=== PATIENT | male | born 1990 | race African-American/Black ===

== ENCOUNTER 2017-04-01 02:00 | Emergency (ER) | payer OTHER ==
[2017-04-01 02:33] VITALS: RESP 18
--- NOTE | 2017-04-01 02:52 | ED ---
General Adult HPI - General Chief complaint: Psychiatric Symptoms Stated complaint: mental health Source: patient, RN notes reviewed, old records reviewed Mode of arrival: ambulatory Limitations: no limitations - History of Present Illness Initial comments: This is a 19-year-old male he states he is having psychosis. States he is having issues with his psychiatric problems. He denies drugs or alcohol abuse. He is unable to answer questions, does not know esters in the hospital denies drugs or alcohol denies homicide or suicide - Related Data Home Medications Medication Instructions Recorded Confirmed traZODone HCL 50 mg PO HS 04/01/17 04/01/17 Previous Rx's Medication Instructions Recorded risperiDONE MICROSPHERES 25 mg IM ONCE #1 syringe 04/07/16 [RisperDAL CONSTA] risperiDONE [RisperDAL] 3 mg PO BID #60 tab 04/07/16 Allergies Allergy/AdvReac Type Severity Reaction Status Date / Time No Known Allergies Allergy Verified 04/01/16 01:31 Review of Systems ROS Statement: Those systems with pertinent positive or pertinent negative responses have been documented in the HPI. ROS Other: All systems not noted in ROS Statement are negative. Past Medical History Past Medical History: No Reported History Additional Past Medical History / Comment(s): pt states he has schizophrenia and he has no other medical issues History of Any Multi-Drug Resistant Organisms: None Reported Past Surgical History: No Surgical Hx Reported Additional Past Anesthesia/Blood Transfusion Reaction / Comment(s): has not had any anesthesia or tranfusions Past Psychological History: Schizophrenia Smoking Status: Current every day smoker Past Alcohol Use History: None Reported Past Drug Use History: Marijuana - Past Family History Father Additional Family Medical History / Comment(s): Father is alive in his 40s with no major medical problems. Mother Additional Family Medical History / Comment(s): Mother in 2007. Patient does not know her age at the time and could be related to alcohol problems. Brother(s) Additional Family Medical History / Comment(s): Patient has 5 brothers and one from problems with alcohol. The other 4 brothers have no major medical problems. Patient has one sister that is healthy. Patient has 3 daughters that are healthy. General Exam Limitations: no limitations General appearance: alert, in no apparent distress Head exam: Present: atraumatic, normocephalic, normal inspection Eye exam: Present: normal appearance, PERRL, EOMI. Absent: scleral icterus, conjunctival injection, periorbital swelling ENT exam: Present: normal exam, mucous membranes moist Neck exam: Present: normal inspection. Absent: tenderness, meningismus, lymphadenopathy Respiratory exam: Present: normal lung sounds bilaterally. Absent: respiratory distress, wheezes, rales, rhonchi, stridor Cardiovascular Exam: Present: regular rate, normal rhythm, normal heart sounds. Absent: systolic murmur, diastolic murmur, rubs, gallop, clicks GI/Abdominal exam: Present: soft, normal bowel sounds. Absent: distended, tenderness, guarding, rebound, rigid Extremities exam: Present: normal inspection, full ROM, normal capillary refill. Absent: tenderness, pedal edema, joint swelling, calf tenderness Back exam: Present: normal inspection Neurological exam: Present: alert, oriented X3, CN II-XII intact Psychiatric exam: Present: normal affect, normal mood Skin exam: Present: warm, dry, intact, normal color. Absent: rash Course Vital Signs 04/01/17 02:28 Temperature 98.2 F Pulse Rate 75 Respiratory 18 Rate Blood Pressure 159/79 O2 Sat by Pulse 95 Oximetry - Reevaluation(s) Reevaluation #1: 04/01/17 02:52 Patient's medically clear for psychiatric evaluation Medical Decision Making - Medical Decision Making 27 male to ED co psychosis, will follow up with [facility], not homicidal or suicidal - Lab Data Lab Results 04/01/17 Range/Units 02:51 Urine Opiates Screen Not Detected (NotDetected) Ur Oxycodone Screen Not Detected (NotDetected) Urine Methadone Screen Not Detected (NotDetected) Ur Propoxyphene Screen Not Detected (NotDetected) Ur Barbiturates Screen Not Detected (NotDetected) U Tricyclic Antidepress Not Detected (NotDetected) Ur Phencyclidine Scrn Not Detected (NotDetected) Ur Amphetamines Screen Not Detected (NotDetected) U Methamphetamines Scrn Not Detected (NotDetected) U Benzodiazepines Scrn Not Detected (NotDetected) Urine Cocaine Screen Not Detected (NotDetected) U Marijuana (THC) Screen Detected H (NotDetected) Disposition Clinical Impression: Psychosis Disposition: HOME SELF-CARE Condition: Good Instructions: Brief Psychotic Disorder (ED) Referrals: None,Stated [Primary Care Provider] - 1-2 days
[2017-04-01] MEDS ORDERED: IBUPROFEN 600 MG TAB PO STA (04:25)
[2017-04-01 04:46] VITALS: BP 138/83; PULSE 61; TEMP 97.8
== END 2017-04-01 04:40 | disposition home or self-care (01) ==
LOC: EC 02:00
DX: F29 Unspecified psychosis not due to a substance or known physiological condition (principal); F20.9 Schizophrenia, unspecified; F17.200 Nicotine dependence, unspecified, uncomplicated; Z79.899 Other long term (current) drug therapy
CPT/HCPCS: 80306; 82075; 99284

== ENCOUNTER 2017-04-03 15:56 | Emergency (ER) | payer OTHER ==
--- NOTE | 2017-04-03 16:01 | ED ---
General Adult HPI <Kelvin Martinez - Last Filed: 04/03/17 16:01> - General Source: patient, RN notes reviewed <Guru Neville - Last Filed: 04/03/17 19:48> - General Stated complaint: Mental Health Time Seen by Provider: 04/03/17 15:59 - History of Present Illness Initial comments: Physical 19-year-old male with history of schizophrenia who came in for evaluation. He's never come on with information. He states he would like to talk to someone from [facility] which is close to. When asked whether he is feeling depressed or having any suicidal or homicidal thoughts or ideations he refuses to answer. He does agree to be awake alert oriented he just smiles and laughs when asked questions. (Guru Neville) - Related Data Home Medications Medication Instructions Recorded Confirmed diphenhydrAMINE [Benadryl] 50 mg PO HS 04/03/17 04/03/17 risperiDONE MICROSPHERES 25 mg IM Q14D 04/03/17 04/03/17 [RisperDAL CONSTA] Allergies Allergy/AdvReac Type Severity Reaction Status Date / Time No Known Allergies Allergy Verified 04/03/17 16:08 Review of Systems ROS Other: All systems not noted in ROS Statement are negative. <Kelvin Martinez - Last Filed: 04/03/17 16:01> ROS Other: All systems not noted in ROS Statement are negative. <Guru Neville - Last Filed: 04/03/17 19:48> ROS Statement: Those systems with pertinent positive or pertinent negative responses have been documented in the HPI. Past Medical History Past Medical History: No Reported History Additional Past Medical History / Comment(s): pt states he has schizophrenia and he has no other medical issues History of Any Multi-Drug Resistant Organisms: None Reported Past Surgical History: No Surgical Hx Reported Additional Past Anesthesia/Blood Transfusion Reaction / Comment(s): has not had any anesthesia or tranfusions Past Psychological History: Schizophrenia Smoking Status: Current every day smoker Past Alcohol Use History: None Reported Past Drug Use History: Marijuana - Past Family History Father Additional Family Medical History / Comment(s): Father is alive in his 40s with no major medical problems. Mother Additional Family Medical History / Comment(s): Mother in 2007. Patient does not know her age at the time and could be related to alcohol problems. Brother(s) Additional Family Medical History / Comment(s): Patient has 5 brothers and one from problems with alcohol. The other 4 brothers have no major medical problems. Patient has one sister that is healthy. Patient has 3 daughters that are healthy. <Kelvin Martinez - Last Filed: 04/03/17 16:01> General Exam <FatouParesh northophbalta Kapadia - Last Filed: 04/03/17 16:01> General appearance: alert, in no apparent distress Head exam: Present: atraumatic, normocephalic, normal inspection Eye exam: Present: normal appearance, PERRL, EOMI. Absent: scleral icterus, conjunctival injection, periorbital swelling ENT exam: Present: normal exam, mucous membranes moist Neck exam: Present: normal inspection. Absent: tenderness, meningismus, lymphadenopathy Respiratory exam: Present: normal lung sounds bilaterally. Absent: respiratory distress, wheezes, rales, rhonchi, stridor Cardiovascular Exam: Present: regular rate, normal rhythm, normal heart sounds. Absent: systolic murmur, diastolic murmur, rubs, gallop, clicks GI/Abdominal exam: Present: soft, normal bowel sounds. Absent: distended, tenderness, guarding, rebound, rigid Extremities exam: Present: normal inspection, full ROM, normal capillary refill. Absent: tenderness, pedal edema, joint swelling, calf tenderness Back exam: Present: normal inspection Neurological exam: Present: alert, oriented X3, CN II-XII intact Psychiatric exam: Present: depressed, flat affect Skin exam: Present: warm, dry, intact, normal color. Absent: rash <Guru Neville - Last Filed: 04/03/17 19:48> - General Exam Comments Initial Comments: This is a well-developed well-nourished awake alert male (Guru Neville) Medical Decision Making <Kelvin Martinez - Last Filed: 04/03/17 16:01> <Guru Neville - Last Filed: 04/03/17 19:48> - Medical Decision Making The patient was evaluated by the psychiatric service. He will be discharged with follow-up with [facility] tomorrow. He currently is not a risk to himself or others. Suicidal thoughts or homicidal thoughts or ideations. (Guru Neville) - Lab Data Lab Results 04/03/17 Range/Units 16:30 Urine Opiates Screen Not Detected (NotDetected) Ur Oxycodone Screen Not Detected (NotDetected) Urine Methadone Screen Not Detected (NotDetected) Ur Propoxyphene Screen Not Detected (NotDetected) Ur Barbiturates Screen Not Detected (NotDetected) U Tricyclic Antidepress Not Detected (NotDetected) Ur Phencyclidine Scrn Not Detected (NotDetected) Ur Amphetamines Screen Not Detected (NotDetected) U Methamphetamines Scrn Not Detected (NotDetected) U Benzodiazepines Scrn Not Detected (NotDetected) Urine Cocaine Screen Not Detected (NotDetected) U Marijuana (THC) Screen Detected H (NotDetected) Disposition <Kelvin Martinez - Last Filed: 04/03/17 16:01> <Guru Neville - Last Filed: 04/03/17 19:48> Clinical Impression: Schizophrenia Disposition: HOME SELF-CARE Condition: Good Instructions: Schizophrenia (ED) Referrals: None,Stated [Primary Care Provider] - 1-2 days
[2017-04-03 16:08] VITALS: RESP 18; TEMP 98.1
[2017-04-03 20:15] VITALS: BP 129/71; PULSE 78
== END 2017-04-03 20:26 | disposition home or self-care (01) ==
LOC: EC 15:56
DX: F20.9 Schizophrenia, unspecified (principal); F17.200 Nicotine dependence, unspecified, uncomplicated; Z79.899 Other long term (current) drug therapy
CPT/HCPCS: 80306; 82075; 99284

== ENCOUNTER 2017-04-05 08:32 | Inpatient (IN) | payer MEDICAID, OTHER ==
--- NOTE | 2017-04-05 09:52 | ED ---
Skin/Abscess/FB HPI - General Chief complaint: Skin/Abscess/Foreign Body Stated complaint: Herpes Time Seen by Provider: 04/05/17 09:06 Source: patient, RN notes reviewed, old records reviewed Mode of arrival: ambulatory Limitations: no limitations - History of Present Illness Initial comments: 27-year-old male presents the ED chief complaint of acute herpes outbreak for the past day or more. Patient will not state exactly when this started. Patient seen in emergency department 2 times earlier this week for psychiatric complaints. Patient has a history of paranoid schizophrenia. He is discharged with these times. Nurse reports to myself that when she has these suicidal ideation question patient would not respond. Upon further questioning when I discussed this with the patient he continued to not respond. Patient will be seen for psychiatric evaluation. - Related Data Home Medications Medication Instructions Recorded Confirmed diphenhydrAMINE [Benadryl] 50 mg PO HS 04/03/17 04/05/17 risperiDONE MICROSPHERES 25 mg IM Q14D 04/03/17 04/05/17 [RisperDAL CONSTA] Previous Rx's Medication Instructions Recorded valACYclovir HCL [Valtrex] 1,000 mg PO Q12HR #20 tab 04/05/17 Allergies Allergy/AdvReac Type Severity Reaction Status Date / Time No Known Allergies Allergy Verified 04/03/17 16:08 Review of Systems ROS Statement: Those systems with pertinent positive or pertinent negative responses have been documented in the HPI. ROS Other: All systems not noted in ROS Statement are negative. Past Medical History Past Medical History: No Reported History Additional Past Medical History / Comment(s): pt states he has schizophrenia and he has no other medical issues History of Any Multi-Drug Resistant Organisms: None Reported Past Surgical History: No Surgical Hx Reported Additional Past Anesthesia/Blood Transfusion Reaction / Comment(s): has not had any anesthesia or tranfusions Past Psychological History: Schizophrenia Smoking Status: Current every day smoker Past Alcohol Use History: None Reported Past Drug Use History: Marijuana - Past Family History Father Additional Family Medical History / Comment(s): Father is alive in his 40s with no major medical problems. Mother Additional Family Medical History / Comment(s): Mother in 2007. Patient does not know her age at the time and could be related to alcohol problems. Brother(s) Additional Family Medical History / Comment(s): Patient has 5 brothers and one from problems with alcohol. The other 4 brothers have no major medical problems. Patient has one sister that is healthy. Patient has 3 daughters that are healthy. General Exam - General Exam Comments Initial Comments: 27-year-old male. No acute distress. Patient is very slow in his responses. Limitations: no limitations General appearance: alert, in no apparent distress Head exam: Present: atraumatic, normocephalic, normal inspection Eye exam: Present: normal appearance, PERRL, EOMI. Absent: scleral icterus, conjunctival injection, periorbital swelling ENT exam: Present: normal exam, mucous membranes moist Neck exam: Present: normal inspection. Absent: tenderness, meningismus, lymphadenopathy Respiratory exam: Present: normal lung sounds bilaterally. Absent: respiratory distress, wheezes, rales, rhonchi, stridor Cardiovascular Exam: Present: regular rate, normal rhythm, normal heart sounds. Absent: systolic murmur, diastolic murmur, rubs, gallop, clicks GI/Abdominal exam: Present: soft, normal bowel sounds. Absent: distended, tenderness, guarding, rebound, rigid Extremities exam: Present: normal inspection, full ROM, normal capillary refill. Absent: tenderness, pedal edema, joint swelling, calf tenderness Back exam: Present: normal inspection Neurological exam: Present: alert, oriented X3, CN II-XII intact Psychiatric exam: Present: normal affect, flat affect (Patient is very slow to respond. Patient will not state that he is suicidal homicidal. Patient refuses answer the question.). Absent: normal mood Skin exam: Present: warm, dry, intact, normal color, rash (Patient is evidence of herpes outbreak over genitalia.) Course Vital Signs 04/05/17 04/05/17 08:34 09:54 Temperature 99.1 F 99.0 F Pulse Rate 69 72 Respiratory 17 18 Rate Blood Pressure 158/82 142/82 O2 Sat by Pulse 98 98 Oximetry Medical Decision Making - Medical Decision Making 19-year-old male chief complaint of acute alveolar herpes simplex reasons emergency department for treatment. Upon questioning he was very slow to respond. Patient was nontender somewhat. He has been seen multiple times this past week and has been discharged. At this time he was clear for EPS evaluation. EPS at [facility] initially evaluated the patient. Upon initial review the thought that he should be discharged. On discussion with psychiatrist he felt he should be admitted. Patient will now be admitted at time for inpatient psychiatric services. - Lab Data Lab Results 04/05/17 Range/Units 10:00 Urine Color Yellow Urine Appearance Clear (Clear) Urine pH 6.5 (5.0-8.0) Ur Specific [place] 1.024 (1.001-1.035) Urine Protein 1+ H (Negative) Urine Glucose (UA) Negative (Negative) Urine Ketones 2+ H (Negative) Urine Blood Negative (Negative) Urine Nitrite Negative (Negative) Urine Bilirubin Negative (Negative) Urine Urobilinogen 6.0 (<2.0) mg/dL Ur Leukocyte Esterase Negative (Negative) Urine WBC 1 (0-5) /hpf Urine Mucus Rare H (None) /hpf Urine Sperm Rare (None) /hpf Urine Opiates Screen Not Detected (NotDetected) Ur Oxycodone Screen Not Detected (NotDetected) Urine Methadone Screen Not Detected (NotDetected) Ur Propoxyphene Screen Not Detected (NotDetected) Ur Barbiturates Screen Not Detected (NotDetected) U Tricyclic Antidepress Not Detected (NotDetected) Ur Phencyclidine Scrn Not Detected (NotDetected) Ur Amphetamines Screen Not Detected (NotDetected) U Methamphetamines Scrn Not Detected (NotDetected) U Benzodiazepines Scrn Not Detected (NotDetected) Urine Cocaine Screen Not Detected (NotDetected) U Marijuana (THC) Screen Detected H (NotDetected) Disposition Clinical Impression: Schizophrenia, Herpes genitalia Disposition: ADMITTED IP TO THIS HOSP Condition: Good Additional Instructions: follow up with [facility] at home. Patient should take prescription as instructed. Return to the emergency department if any alarming signs or symptoms occur. Prescriptions: valACYclovir HCL [Valtrex] 1,000 mg PO Q12HR #20 tab Referrals: None,Stated [Primary Care Provider] - 1-2 days Time of Disposition: 12:22
[2017-04-05 10:10] LABS: Appearance,Urine Clear (Clear); Bilirubin,Urine Negative (Negative); Glucose,Urine (UA) Negative (Negative); Ketones,Urine 2+ (Negative); Leukocyte Esterase,Urine Negative (Negative); Mucus,Urine Rare /hpf; Nitrite,Urine Negative (Negative); PH, Urine 6.5 (5.0-8.0); Particle Count 1838; Protein,Urine 1+ (Negative); Specific Gravity,Urine 1.024 (1.001-1.035); Sperm,Urine Rare /hpf; UA Billing (MACRO vs. MICRO) MICRO; WBC,Urine 1 /hpf (0-5)
[2017-04-05] MEDS ORDERED: MAGNESIUM HYDROXIDE 2,400 MG/10 ML CUP PO PRN (15:57)
[2017-04-05] MEDS ORDERED: ACETAMINOPHEN TAB 325 MG TAB PO PRN (15:57)
[2017-04-05] MEDS ORDERED: MAG HYDROX/AL HYDROX/SIMETH 30 ML CUP PO PRN (15:57)
[2017-04-05] MEDS ORDERED: risperiDONE 2 MG TAB PO SCH (21:00)
[2017-04-05] MEDS: diphenhydrAMINE 50 MG CAP PO SCH (21:05)
[2017-04-05] MEDS: valACYclovir HCL 1,000 MG TABLET PO SCH (21:05)
[2017-04-05 22:38] VITALS: BMI 26.0
[2017-04-06] MEDS: valACYclovir HCL 1,000 MG TABLET PO SCH ×2 (08:18→21:01)
[2017-04-06 08:29] LABS: Basophils % (A) 1 %; CH 33.6; CHCM 34.6; Eosinophils # (A) 0.1 k/uL (0-0.7); Eosinophils % (A) 2 %; HCT 44.9 % (39.0-53.0); HDW 2.33; HGB 15.3 gm/dL (13.0-17.5); Luc % (Auto) 2; Lymphocytes # (A) 1.5 k/uL (1.0-4.8); Lymphocytes % (A) 35 %; MCH 33.2 pg (25.0-35.0); MCV 97.5 fL (80.0-100.0); Monocytes # (A) 0.2 k/uL (0-1.0); Monocytes % (A) 5 %; Neutrophils # (A) 2.5 k/uL (1.3-7.7); Neutrophils % (A) 56 %; RBC 4.61 m/uL (4.30-5.90); RDW 12.2 % (11.5-15.5); WBC 4.4 k/uL (3.8-10.6); WBC (Perox) 4.43
[2017-04-06 08:51] LABS: ALT 25 U/L (21-72); AST 30 U/L (17-59); Alkaline Phosphatase 86 U/L (38-126); Anion Gap 10 mmol/L; Blood Urea Nitrogen 15 mg/dL (9-20); Calcium 9.4 mg/dL (8.4-10.2); Carbon Dioxide 25 mmol/L (22-30); Chloride 105 mmol/L (98-107); Glucose 116 mg/dL (74-99); Non-African American GFR(MDRD) >60 (>60 ml/min/1.73 sqM); Potassium 4.4 mmol/L (3.5-5.1); Sodium 140 mmol/L (137-145); Total Bilirubin 0.9 mg/dL (0.2-1.3); Total Protein 7.7 g/dL (6.3-8.2)
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
[2017-04-06] MEDS: PALIPERIDONE 6 MG TAB.ER.24 PO SCH (10:28)
[2017-04-06] MEDS: diphenhydrAMINE 50 MG CAP PO SCH (21:01)
--- NOTE | 2017-04-06 21:25 | P.CONS ---
History of Present Illness - Reason for Consult Consult date: 04/06/17 Medical evaluation - History of Present Illness 27-year-old gentleman -[place] who was seen in emergency room secondary to a rash in the genitalia and was found to have herpes genitalia, patient does not have a current PCP, his currently being treated at the facility with concerns that he might be suicidal. Patient has underlying history of schizophrenia, tobacco use and tobacco use, patient has initial evaluation done emergency room regarding his depression and any suicidality intent. Patient was not giving any answers to these and was silent to his answers, he was further evaluated by the emergency room secondary social studies teacher with recommendations to be admitted at the mental health unit. Patient had previously admitted last 10/2015 secondary to hallucinations, patient had no suicidal plans in the past however she E mentioned he smoked K2 as a suicide attempt there was no previous history of overdose or wrist cutting. Patient currently is homeless it doesn't seem like he was compliant on medications as he doesn't want anybody to find his medication and take them like candy, Review of Systems Constitutional: Reports as per HPI, Denies anorexia, Denies chills, Denies chronic headaches, Denies chronic pain, Denies daytime sleepiness, Denies fatigue, Denies fever, Denies lethargy, Denies malaise, Denies night sweats, Denies poor appetite, Denies sweats, Denies weakness, Denies weight gain, Denies weight loss Ears, nose, mouth and throat: Reports as per HPI, Denies ant. neck pain, Denies bleeding gums, Denies dental pain, Denies dysphagia, Denies epistaxis, Denies headache, Denies hoarseness, Denies mouth pain, Denies nasal congestion, Denies nasal discharge, Denies neck fullness/pressure, Denies neck lump, Denies nose pain, Denies odynophagia, Denies post-nasal drip, Denies sinus pain, Denies sinus pressure, Denies swelling in mouth, Denies swelling in throat, Denies sore throat, Denies vertigo, Denies voice changes Cardiovascular: Reports as per HPI, Denies chest pain, Denies claudication, Denies decreased exercise tolerance, Denies dyspnea on exertion, Denies edema, Denies high blood pressure, Denies irregular heart beat, Denies leg edema, Denies lightheadedness, Denies orthopnea, Denies palpitations, Denies paroxysmal nocturnal dyspnea, Denies phlebitis, Denies rapid heart beat, Denies shortness of breath, Denies syncope Respiratory: Reports as per HPI, Denies congestion, Denies cough, Denies cough with sputum, Denies dyspnea, Denies excessive sputum, Denies hemoptysis, Denies home oxygen, Denies pain, Denies pain on inspiration, Denies pleurisy, Denies respiratory infections, Denies sleep apnea, Denies snoring, Denies wheezing Gastrointestinal: Reports as per HPI, Denies abdominal pain, Denies belching, Denies bloating, Denies BRBPR, Denies change in bowel habits, Denies coffee ground emesis, Denies constipation, Denies diarrhea, Denies dyspepsia, Denies early satiety, Denies excessive gas, Denies heartburn, Denies hematemesis, Denies hematochezia, Denies indigestion, Denies jaundice, Denies lactose intolerance, Denies loss of appetite, Denies melena, Denies nausea, Denies vomiting Genitourinary: Reports as per HPI, Reports genital sores Musculoskeletal: Reports as per HPI Integumentary: Reports as per HPI Neurological: Reports as per HPI Psychiatric: Reports as per HPI Endocrine: Reports as per HPI Hematologic/Lymphatic: Reports as per HPI Allergic/Immunologic: Reports as per HPI Past Medical History Past Medical History: No Reported History Additional Past Medical History / Comment(s): pt states he has schizophrenia and he has no other medical issues History of Any Multi-Drug Resistant Organisms: None Reported Past Surgical History: No Surgical Hx Reported Additional Past Anesthesia/Blood Transfusion Reaction / Comm: has not had any anesthesia or tranfusions Past Psychological History: Schizophrenia Smoking Status: Current every day smoker - Past Family History Father Additional Family Medical History / Comment(s): Father is alive in his 40s with no major medical problems. Mother Additional Family Medical History / Comment(s): Mother in 2007. Patient does not know her age at the time and could be related to alcohol problems. Brother(s) Additional Family Medical History / Comment(s): Patient has 5 brothers and one from problems with alcohol. The other 4 brothers have no major medical problems. Patient has one sister that is healthy. Patient has 3 daughters that are healthy. Medications and Allergies Home Medications Medication Instructions Recorded Confirmed Type diphenhydrAMINE [Benadryl] 50 mg PO HS 04/03/17 04/05/17 History risperiDONE MICROSPHERES 25 mg IM Q14D 04/03/17 04/05/17 History [RisperDAL CONSTA] Allergies Allergy/AdvReac Type Severity Reaction Status Date / Time No Known Allergies Allergy Verified 04/05/17 20:10 Physical Exam Vitals: Vital Signs Temp Pulse Pulse Resp BP BP Pulse Ox 04/06/17 06:35 98.0 F 113 H 16 102/59 04/05/17 22:31 98.6 F 81 14 130/76 04/05/17 20:13 68 16 116/58 97 04/05/17 16:06 98.6 F 81 15 130/76 98 04/05/17 14:35 99.1 F 80 15 112/61 97 04/05/17 13:36 99.3 F 77 14 116/58 97 Intake and Output 04/05/17 04/06/17 04/06/17 22:59 06:59 14:59 Other: Weight 92.1 kg - Constitutional General appearance: cooperative, no acute distress - EENT Eyes: anicteric sclerae, EOMI, PERRLA, dentition normal, normal appearance ENT: hard of hearing, NA/AT, normal oropharynx - Neck Neck: no lymphadenopathy, normal ROM, no other, no rigidity, no stridor, no thyromegaly - Respiratory Respiratory: bilateral: CTA, negative: diminished, dullness, rales, rhonchi - Cardiovascular Rhythm: regular Heart sounds: normal: S1, S2 Abnormal Heart Sounds: no systolic murmur, no diastolic murmur, no rub, no S3 Gallop, no S4 Gallop, no click, no other - Gastrointestinal General gastrointestinal: soft - Integumentary Integumentary: normal, normal turgor - Neurologic Neurologic: CNII-XII intact - Musculoskeletal Musculoskeletal: strength equal bilaterally - Psychiatric Psychiatric: A&O x's 3, appropriate affect, intact judgment & insight Results CBC & Chem 7: 04/06/17 08:14 04/06/17 08:14 Labs: Abnormal Lab Results - Last 24 Hours (Table) 04/06/17 Range/Units 08:14 Glucose 116 H (74-99) mg/dL Laboratory Results WBC 4.4 k/uL (3.8-10.6) 04/06/17 08:14 RBC 4.61 m/uL (4.30-5.90) 04/06/17 08:14 Hgb 15.3 gm/dL (13.0-17.5) 04/06/17 08:14 Hct 44.9 % (39.0-53.0) 04/06/17 08:14 MCV 97.5 fL (80.0-100.0) 04/06/17 08:14 MCH 33.2 pg (25.0-35.0) 04/06/17 08:14 MCHC 34.0 g/dL (31.0-37.0) 04/06/17 08:14 RDW 12.2 % (11.5-15.5) 04/06/17 08:14 Plt Count 255 k/uL (150-450) 04/06/17 08:14 Neutrophils % 56 % 04/06/17 08:14 Lymphocytes % 35 % 04/06/17 08:14 Monocytes % 5 % 04/06/17 08:14 Eosinophils % 2 % 04/06/17 08:14 Basophils % 1 % 04/06/17 08:14 Neutrophils # 2.5 k/uL (1.3-7.7) 04/06/17 08:14 Lymphocytes # 1.5 k/uL (1.0-4.8) 04/06/17 08:14 Monocytes # 0.2 k/uL (0-1.0) 04/06/17 08:14 Eosinophils # 0.1 k/uL (0-0.7) 04/06/17 08:14 Basophils # 0.0 k/uL (0-0.2) 04/06/17 08:14 Sodium 140 mmol/L (137-145) 04/06/17 08:14 Potassium 4.4 mmol/L (3.5-5.1) 04/06/17 08:14 Chloride 105 mmol/L (98-107) 04/06/17 08:14 Carbon Dioxide 25 mmol/L (22-30) 04/06/17 08:14 Anion Gap 10 mmol/L 04/06/17 08:14 BUN 15 mg/dL (9-20) 04/06/17 08:14 Creatinine 1.07 mg/dL (0.66-1.25) 04/06/17 08:14 Est GFR (MDRD) Af Amer >60 (>60 ml/min/1.73 sqM) 04/06/17 08:14 Est GFR (MDRD) Non-Af >60 (>60 ml/min/1.73 sqM) 04/06/17 08:14 Glucose 116 mg/dL (74-99) H 04/06/17 08:14 Calcium 9.4 mg/dL (8.4-10.2) 04/06/17 08:14 Total Bilirubin 0.9 mg/dL (0.2-1.3) 04/06/17 08:14 AST 30 U/L (17-59) 04/06/17 08:14 ALT 25 U/L (21-72) 04/06/17 08:14 Alkaline Phosphatase 86 U/L (38-126) 04/06/17 08:14 Total Protein 7.7 g/dL (6.3-8.2) 04/06/17 08:14 Albumin 4.2 g/dL (3.5-5.0) 04/06/17 08:14 TSH 0.497 mIU/L (0.465-4.680) 04/06/17 08:14 Urine Color Yellow 04/05/17 10:00 Urine Appearance Clear (Clear) 04/05/17 10:00 Urine pH 6.5 (5.0-8.0) 04/05/17 10:00 Ur Specific [place] 1.024 (1.001-1.035) 04/05/17 10:00 Urine Protein 1+ (Negative) H 04/05/17 10:00 Urine Glucose (UA) Negative (Negative) 04/05/17 10:00 Urine Ketones 2+ (Negative) H 04/05/17 10:00 Urine Blood Negative (Negative) 04/05/17 10:00 Urine Nitrite Negative (Negative) 04/05/17 10:00 Urine Bilirubin Negative (Negative) 04/05/17 10:00 Urine Urobilinogen 6.0 mg/dL (<2.0) 04/05/17 10:00 Ur Leukocyte Esterase Negative (Negative) 04/05/17 10:00 Urine WBC 1 /hpf (0-5) 04/05/17 10:00 Urine Mucus Rare /hpf (None) H 04/05/17 10:00 Urine Sperm Rare /hpf (None) 04/05/17 10:00 Urine Opiates Screen Not Detected (NotDetected) 04/05/17 10:00 Ur Oxycodone Screen Not Detected (NotDetected) 04/05/17 10:00 Urine Methadone Screen Not Detected (NotDetected) 04/05/17 10:00 Ur Propoxyphene Screen Not Detected (NotDetected) 04/05/17 10:00 Ur Barbiturates Screen Not Detected (NotDetected) 04/05/17 10:00 U Tricyclic Antidepress Not Detected (NotDetected) 04/05/17 10:00 Ur Phencyclidine Scrn Not Detected (NotDetected) 04/05/17 10:00 Ur Amphetamines Screen Not Detected (NotDetected) 04/05/17 10:00 U Methamphetamines Scrn Not Detected (NotDetected) 04/05/17 10:00 U Benzodiazepines Scrn Not Detected (NotDetected) 04/05/17 10:00 Urine Cocaine Screen Not Detected (NotDetected) 04/05/17 10:00 U Marijuana (THC) Screen Detected (NotDetected) H 04/05/17 10:00 Assessment and Plan Plan: 1. Schizophrenia patient currently is in the mental health unit given Risperdal initially, and is currently receiving in [place], 2. Genital herpes her ER evaluation, was started on valacyclovir 1000 mg by mouth every 12 10 days next 3. History of tobacco use currently at 1 pack per day 4. Currently homelessness, patient and has been for 3 years, has custody off 3 kids next 5. EKG evaluation shows occasional PACs normal sinus rhythm with right axis deviation, no QT prolongation
[2017-04-07] MEDS: valACYclovir HCL 1,000 MG TABLET PO SCH ×2 (08:54→20:45)
[2017-04-07] MEDS: PALIPERIDONE 6 MG TAB.ER.24 PO SCH (08:54)
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
[2017-04-07] MEDS: diphenhydrAMINE 50 MG CAP PO SCH (20:45)
[2017-04-08 06:51] VITALS: BP 140/61; PULSE 57; RESP 16; TEMP 97.8
[2017-04-08] MEDS: PALIPERIDONE 6 MG TAB.ER.24 PO SCH (08:43)
[2017-04-08] MEDS: valACYclovir HCL 1,000 MG TABLET PO SCH (08:43)
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
== END 2017-04-08 14:19 | disposition left against medical advice (07) | DRG 894 ==
LOC: EC 08:32 → 3MHU 14:17
PROVIDERS: ADMIT Psychiatry & Neurology Addiction Medicine; ATTEND Psychiatry & Neurology Addiction Medicine
DX: F12.159 Cannabis abuse with psychotic disorder, unspecified (principal); F20.9 Schizophrenia, unspecified; A60.00 Herpesviral infection of urogenital system, unspecified; F17.200 Nicotine dependence, unspecified, uncomplicated; Z59.0 Homelessness; Z91.5 Personal history of self-harm; Z79.899 Other long term (current) drug therapy; Z81.1 Family history of alcohol abuse and dependence
CPT/HCPCS: 80053; 80306; 81001; 82075; 84443; 85025; 93005; 99285

== ENCOUNTER 2018-04-10 14:09 | Emergency (ER) | payer OTHER ==
[2018-04-10 14:14] VITALS: BP 151/86; PULSE 62; RESP 20; TEMP 97.7
[2018-04-10] MEDS ORDERED: IBUPROFEN 600 MG TAB PO STA (14:32)
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
[2018-04-10] MEDS ORDERED: MORPHINE SULFATE 2 MG/ML SYRINGE IM STA (15:03)
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
== END 2018-04-10 17:01 | disposition home or self-care (01) ==
LOC: EC 14:09
DX: S42.402A Unspecified fracture of lower end of left humerus, initial encounter for closed fracture (principal); M25.542 Pain in joints of left hand; M79.632 Pain in left forearm; M25.522 Pain in left elbow; F20.9 Schizophrenia, unspecified; F17.200 Nicotine dependence, unspecified, uncomplicated; Z79.899 Other long term (current) drug therapy; V18.0XXA Pedal cycle driver injured in noncollision transport accident in nontraffic accident, initial encounter; Y93.89 Activity, other specified
CPT/HCPCS: 99284; 29105; 96372; 73060; 73090; 73130; J2270

== ENCOUNTER 2022-12-15 16:01 | Emergency (ER) | payer OTHER ==
[2022-12-15 16:57] VITALS: BP 136/83; PULSE 89; RESP 16; TEMP 98.7
--- NOTE | 2022-12-15 17:26 | ED ---
Skin/Abscess/FB HPI - General Chief complaint: Skin/Abscess/Foreign Body Stated complaint: swollen lip Time Seen by Provider: 12/15/22 16:58 Source: patient Mode of arrival: ambulatory Limitations: no limitations - History of Present Illness Initial comments: Patient is a 32-year-old male presenting with chief complaint of painful bump to the upper lip. Patient states that he noted the bump when he was smoking a cigarette, when he touched his lip he noticed some pain. Patient states that he has had bumps like this on his lips in the past. No itching. No rash. No swelling of the lips. No difficulty breathing or swallowing. No fevers or chills. No open wounds or discharge. - Related Data Home Medications Medication Instructions Recorded Confirmed risperiDONE MICROSPHERES 25 mg IM Q14D 04/03/17 04/10/18 [RisperDAL CONSTA] diphenhydrAMINE [Benadryl] 25 mg PO HS 04/10/18 04/10/18 Previous Rx's Medication Instructions Recorded HYDROcodone/APAP 5-325MG [[place] 1 tab PO Q6HR PRN #10 tab 04/10/18 5-325] Ibuprofen [Motrin] 600 mg PO Q6HR PRN #20 tab 04/10/18 Acyclovir [Zovirax] 400 mg PO TID 7 Days #21 tablet 12/15/22 Allergies Allergy/AdvReac Type Severity Reaction Status Date / Time No Known Allergies Allergy Verified 12/15/22 16:58 Review of Systems ROS Statement: Those systems with pertinent positive or pertinent negative responses have been documented in the HPI. ROS Other: All systems not noted in ROS Statement are negative. Past Medical History Past Medical History: No Reported History Additional Past Medical History / Comment(s): pt states he has schizophrenia and he has no other medical issues History of Any Multi-Drug Resistant Organisms: None Reported Past Surgical History: No Surgical Hx Reported Additional Past Anesthesia/Blood Transfusion Reaction / Comment(s): has not had any anesthesia or tranfusions Past Psychological History: Schizophrenia Smoking Status: Current every day smoker Past Alcohol Use History: Rare Past Drug Use History: Marijuana - Past Family History Father Additional Family Medical History / Comment(s): Father is alive in his 40s with no major medical problems. Mother Additional Family Medical History / Comment(s): Mother in 2007. Patient does not know her age at the time and could be related to alcohol problems. Brother(s) Additional Family Medical History / Comment(s): Patient has 5 brothers and one from problems with alcohol. The other 4 brothers have no major medical problems. Patient has one sister that is healthy. Patient has 3 daughters that are healthy. General Exam Limitations: no limitations General appearance: alert, in no apparent distress Head exam: Present: atraumatic, normocephalic, normal inspection Eye exam: Present: normal appearance Neck exam: Present: normal inspection, full ROM Neurological exam: Present: alert, oriented X3, CN II-XII intact Psychiatric exam: Present: normal affect, normal mood Skin exam: Present: vesicles (Patient has a painful fluid filled vesicle on the upper lip) Course Vital Signs 12/15/22 16:54 Temperature 98.7 F Pulse Rate 89 Respiratory 16 Rate Blood Pressure 136/83 O2 Sat by Pulse 96 Oximetry Medical Decision Making - Medical Decision Making Was pt. sent in by a medical professional or institution (, PA, HAND MOUNTER, urgent care, hospital, or correction...) When possible be specific @ -No Did you speak to anyone other than the patient for history (EMS, parent, family, police, friend...)? What history was obtained from this source @ -No Did you review nursing and triage notes (agree or disagree)? Why? @ -I reviewed and agree with nursing and triage notes Were old charts reviewed (outside hosp., previous admission, EMS record, old EKG, old radiological studies, urgent care reports/EKG's, correction records)? Report findings @ -No old charts were reviewed Differential Diagnosis (chest pain, altered mental status, abdominal pain women, abdominal pain men, vaginal bleeding, weakness, fever, dyspnea, syncope, headache, dizziness, GI bleed, back pain, seizure, CVA, palpatations, mental health, musculoskeletal)? @ -Differential includes HSV, ALLERGIC reaction, cellulitis, abscess, viral rash, this was not an all-inclusive list EKG interpreted by me (3pts min.). @ -As above X-rays interpreted by me (1pt min.). @ -None done CT interpreted by me (1pt min.). @ -None done U/S interpreted by me (1pt. min.). @ -None done What testing was considered but not performed or refused? (CT, X-rays, U/S, labs)? Why? @ -None What meds were considered but not given or refused? Why? @ -None Did you discuss the management of the patient with other professionals (professionals i.e. , PA, HAND MOUNTER, lab, RT, psych nurse, clinical social worker, cafeteria table attendant, teacher, consular officer, clinical case manager)? Give summary @ -No Was smoking cessation discussed for >3mins.? @ -No Was critical care preformed (if so, how long)? @ -No Were there social determinants of health that impacted care today? How? (Homelessness, low income, unemployed, alcoholism, drug addiction, transportation, low edu. Level, literacy, decrease access to med. care, correction, rehab)? @ -No Was there de-escalation of care discussed even if they declined (Discuss DNR or withdrawal of care, Hospice)? DNR status @ -No What co-morbidities impacted this encounter? (DM, HTN, Smoking, COPD, CAD, Cancer, CVA, ARF, Chemo, Hep., AIDS, mental health diagnosis, sleep apnea, morbid obesity)? @ -None Was patient admitted / discharged? Hospital course, mention meds given and route, prescriptions, significant lab abnormalities, going to OR and other pertinent info. @ -Patient is a 32-year-old male presenting with chief complaint of painful bump to the upper lip that he noticed today. Patient has had episodes of these painful bumps on the lip in the past. On examination of the lesion resembles that of HSV. Patient is requesting testing for HSV, I informed the patient that this will not change her treatment plan today, patient continued to request a lab work. Lab work is sent out and patient is instructed that he will be called back with results. Patient is started on acyclovir. Educated that HSV is contagious, do not touch the lip or bring the lips in contact with others until the lesion has cleared up. Patient is informed that once someone has HSV they will have it for life. Follow-up with PCP. Report back to ER with any new or worsening symptoms. Discussed return parameters and answered all questions. Patient conveyed verbal understanding and agreed to the plan. I discussed this case in detail with my attending Dr. Jacobsen Undiagnosed new problem with uncertain prognosis? @ -No Drug Therapy requiring intensive monitoring for toxicity (Heparin, Nitro, Insulin, Cardizem)? @ -No Were any procedures done? @ -No Diagnosis/symptom? @ -HSV Acute, or Chronic, or Acute on Chronic? @ -Acute Uncomplicated (without systemic symptoms) or Complicated (systemic symptoms)? @ -Uncomplicated Side effects of treatment? @ -No Exacerbation, Progression, or Severe Exacerbation? @ -No Poses a threat to life or bodily function? How? (Chest pain, [place], [place], pneumonia, PE, COPD, DKA, ARF, appy, cholecystitis, CVA, Diverticulitis, Homicidal, Suicidal, threat to staff... and all critical care pts) @ -No - Lab Data Lab Results 12/15/22 Range/Units 17:38 HSV I IgG Ab >8.0 AI HSV I IgG Interpret POSITIVE A (NEGATIVE) HSV II IgG <0.2 AI HSV II IgG Interpret NEGATIVE (NEGATIVE) Disposition Clinical Impression: Cold sore Disposition: HOME SELF-CARE Condition: Good Instructions (If sedation given, give patient instructions): Oral Herpes Simplex Virus Infections (ED) Additional Instructions: Follow-up with PCP. Report back to ER with any new or worsening symptoms. Prescriptions: Acyclovir [Zovirax] 400 mg PO TID 7 Days #21 tablet Is patient prescribed a controlled substance at d/c from ED?: No Referrals: None,Stated [Primary Care Provider] - 1-2 days Time of Disposition: 17:26
[2022-12-16 00:47] LABS: HSV I IgG Interp POSITIVE (NEGATIVE); HSV II IgG Interp NEGATIVE (NEGATIVE)
== END 2022-12-15 17:57 | disposition home or self-care (01) ==
LOC: EC 16:01
DX: B00.1 Herpesviral vesicular dermatitis (principal); F17.200 Nicotine dependence, unspecified, uncomplicated; F12.90 Cannabis use, unspecified, uncomplicated
CPT/HCPCS: 36415; 86694; 86695; 86696; 99283

== ENCOUNTER 2023-02-09 17:23 | Inpatient (IN) | payer MEDICARE, MEDICAID ==
--- NOTE | 2023-02-09 17:45 | ED ---
Psych HPI - General Source: patient, family, RN notes reviewed, old records reviewed Mode of arrival: ambulatory - History of Present Illness MD Complaint: suicidal ideation, feels depressed, altered mental status Associated Psychiatric Symptoms: depression, suicidal ideation History of same: Yes Quality: constant Improves With: none, medication Context: significant life stressor Associated Symptoms: denies other symptoms Treatments Prior to Arrival: placed on mental health hold If Self Harm: admits thoughts of self harm <Kelvin Martinez - Last Filed: 02/09/23 22:24> <Karl Cortés - Last Filed: 02/10/23 03:27> - General Chief Complaint: Psychiatric Symptoms Stated Complaint: Mental health Time Seen by Provider: 02/09/23 17:40 - History of Present Illness Initial Comments: This is a 32-year-old male to the emergency department for evaluation psychiatric illness with history of psychiatric illness, history of schizophrenia significant recent suicidal thoughts. Unchanged and worsening. Patient is taking all medications as prescribed. Patient denies drugs or alcohol. (Kelvin Martinez) - Related Data Home Medications Medication Instructions Recorded Confirmed risperiDONE MICROSPHERES 50 mg IM Q14D 02/09/23 02/09/23 [RisperDAL Consta] Allergies Allergy/AdvReac Type Severity Reaction Status Date / Time No Known Allergies Allergy Verified 02/09/23 19:33 Review of Systems ROS Other: All systems not noted in ROS Statement are negative. <Kelvin Martinez - Last Filed: 02/09/23 22:24> ROS Other: All systems not noted in ROS Statement are negative. <Karl Cortés - Last Filed: 02/10/23 03:27> ROS Statement: Those systems with pertinent positive or pertinent negative responses have been documented in the HPI. Past Medical History Past Medical History: No Reported History Additional Past Medical History / Comment(s): pt states he has schizophrenia and he has no other medical issues History of Any Multi-Drug Resistant Organisms: None Reported Past Surgical History: No Surgical Hx Reported Additional Past Anesthesia/Blood Transfusion Reaction / Comment(s): has not had any anesthesia or tranfusions Past Psychological History: Schizophrenia Smoking Status: Current every day smoker Past Alcohol Use History: Rare Past Drug Use History: Marijuana - Past Family History Father Additional Family Medical History / Comment(s): Father is alive in his 40s with no major medical problems. Mother Additional Family Medical History / Comment(s): Mother in 2007. Patient does not know her age at the time and could be related to alcohol problems. Brother(s) Additional Family Medical History / Comment(s): Patient has 5 brothers and one from problems with alcohol. The other 4 brothers have no major medical problems. Patient has one sister that is healthy. Patient has 3 daughters that are healthy. <Kelvni Martinez - Last Filed: 02/09/23 22:24> General Exam Limitations: no limitations General appearance: alert, in no apparent distress Head exam: Present: atraumatic, normocephalic, normal inspection Eye exam: Present: normal appearance, PERRL, EOMI. Absent: scleral icterus, conjunctival injection, periorbital swelling ENT exam: Present: normal exam, mucous membranes moist Neck exam: Present: normal inspection. Absent: tenderness, meningismus, lymphadenopathy Respiratory exam: Present: normal lung sounds bilaterally. Absent: respiratory distress, wheezes, rales, rhonchi, stridor Cardiovascular Exam: Present: regular rate, normal rhythm, normal heart sounds. Absent: systolic murmur, diastolic murmur, rubs, gallop, clicks GI/Abdominal exam: Present: soft, normal bowel sounds. Absent: distended, tenderness, guarding, rebound, rigid Extremities exam: Present: normal inspection, full ROM, normal capillary refill. Absent: tenderness, pedal edema, joint swelling, calf tenderness Back exam: Present: normal inspection Neurological exam: Present: alert, oriented X3, CN II-XII intact Psychiatric exam: Present: normal affect, normal mood Skin exam: Present: warm, dry, intact, normal color. Absent: rash <Kelvin Martinez - Last Filed: 02/09/23 22:24> Course <Kelvin Martinez - Last Filed: 02/09/23 22:24> Vital Signs 02/09/23 02/10/23 17:28 02:34 Temperature 98.1 F Pulse Rate 80 72 Respiratory 16 18 Rate Blood Pressure 144/72 O2 Sat by Pulse 96 Oximetry - Reevaluation(s) Reevaluation #1: 02/09/23 22:24 Record is reviewed (Kelvin Martinez) Reevaluation #2: 02/09/23 22:24 Medical clear for psychiatric evaluation (Kelvin Martinez) Medical Decision Making <Karl Cortés - Last Filed: 02/10/23 03:27> - Medical Decision Making Patient signed out to me pending results of psychiatric evaluation. EPS Brenda contacted me as the patient was pending EPS evaluation. Patient does meet inpatient criteria. Patient will sign himself in. Covid swab negative. Patient admitted to inpatient psychiatry in stable condition. Diagnosis/symptom? @ -Encounter for psychiatric evaluation, suicidal Acute, or Chronic, or Acute on Chronic? @ -Acute Uncomplicated (without systemic symptoms) or Complicated (systemic symptoms)? @ -Uncomplicated Side effects of treatment? @ -none Exacerbation, Progression, or Severe Exacerbation] @ -no Poses a threat to life or bodily function? @ -yes (Karl Cortés) - Lab Data Lab Results 02/09/23 02/10/23 Range/Units 22:40 01:52 Urine Opiates Screen Not Detected (NotDetected) Ur Oxycodone Screen Not Detected (NotDetected) Urine Methadone Screen Not Detected (NotDetected) Ur Propoxyphene Screen Not Detected (NotDetected) Ur Barbiturates Screen Not Detected (NotDetected) U Tricyclic Antidepress Not Detected (NotDetected) Ur Phencyclidine Scrn Not Detected (NotDetected) Ur Amphetamines Screen Not Detected (NotDetected) U Methamphetamines Scrn Not Detected (NotDetected) U Benzodiazepines Scrn Not Detected (NotDetected) Urine Cocaine Screen Detected H (NotDetected) U Marijuana (THC) Screen Detected H (NotDetected) Coronavirus (PCR) Not Detected (Not Detectd) Disposition <Kelvin Martinez - Last Filed: 02/09/23 22:24> <Karl Cortés - Last Filed: 02/10/23 03:27> Clinical Impression: Suicidal ideation, Encounter for psychiatric assessment Disposition: ADMITTED IP TO THIS HOSP Condition: Stable
[2023-02-09 23:21] LABS: Amphetamine Screen,Urine Not Detected (NotDetected); Barbiturate Screen,Urine Not Detected (NotDetected); Benzodiazepines Screen,Urine Not Detected (NotDetected); Cocaine Screen,Urine Detected (NotDetected); Methadone Screen, Urine Not Detected (NotDetected); Opiate Screen,Urine Not Detected (NotDetected); Oxycodone Screen, Urine Not Detected (NotDetected); Phencyclidine Screen,Urine Not Detected (NotDetected); Tricyclic Antidepressant,Urine Not Detected (NotDetected); Urn Cannabinoid Scrn Detected (NotDetected)
[2023-02-10] MEDS ORDERED: haloperidoL 5 MG TAB PO PRN (03:17)
[2023-02-10] MEDS ORDERED: LORazepam 1 MG TAB PO PRN (03:17)
[2023-02-10] MEDS ORDERED: ACETAMINOPHEN TAB 325 MG TAB PO PRN (03:17)
[2023-02-10] MEDS ORDERED: MAGNESIUM HYDROXIDE 2,400 MG/10 ML CUP PO PRN (03:17)
[2023-02-10] MEDS ORDERED: HALOPERIDOL LACTATE 5 MG/ML 1 ML VIAL IM PRN (03:17)
[2023-02-10] MEDS ORDERED: LORazepam 2 MG/ML INJ IM PRN (03:23)
[2023-02-10 07:24] LABS: Basophils % (A) 1 %; Eosinophils # (A) 0.2 k/uL (0-0.7); Eosinophils % (A) 3 %; HCT 44.3 % (39.0-53.0); HGB 14.9 gm/dL (13.0-17.5); Lymphocytes # (A) 2.5 k/uL (1.0-4.8); Lymphocytes % (A) 43 %; MCH 33.1 pg (25.0-35.0); MCHC 33.5 g/dL (31.0-37.0); MCV 98.8 fL (80.0-100.0); Mean Platelet Volume 7.6; Monocytes # (A) 0.4 k/uL (0-1.0); Monocytes % (A) 7 %; Neutrophils # (A) 2.5 k/uL (1.3-7.7); Neutrophils % (A) 43 %; Platelet Count 261 k/uL (150-450); RBC 4.48 m/uL (4.30-5.90); RDW 12.1 % (11.5-15.5); WBC 5.7 k/uL (3.8-10.6)
[2023-02-10 08:03] LABS: ALT 25 U/L (4-49); AST 32 U/L (17-59); African American GFR (CKD) >90 (>60 ml/min/1.73 sqM); Albumin 3.9 g/dL (3.5-5.0); Alkaline Phosphatase 97 U/L (38-126); Anion Gap 6 mmol/L; Blood Urea Nitrogen 6 mg/dL (9-20); Calcium 9.2 mg/dL (8.4-10.2); Carbon Dioxide 26 mmol/L (22-30); Chloride 105 mmol/L (98-107); Glucose 88 mg/dL (74-99); Non-African American GFR(CKD) 90 (>60 ml/min/1.73 sqM); Potassium 4.6 mmol/L (3.5-5.1); Sodium 137 mmol/L (137-145); Total Bilirubin 0.6 mg/dL (0.2-1.3); Total Protein 7.3 g/dL (6.3-8.2)
[2023-02-10 13:43] LABS: Chol/HDL Ratio 4.58 Ratio; LDL Cholesterol,Calculated 49.2 mg/dL (0.0-131.0)
[2023-02-10 14:05] VITALS: BMI 30.5
[2023-02-10] MEDS: NICOTINE 14MG/24HR PATCH TRANSDERM SCH (16:55)
--- NOTE | 2023-02-10 21:06 | P.HP ---
Psychiatric H&P - . H&P Date: 02/10/23 History & Physical: IDENTIFYING DATA: Patient is a 32 year old male with history of polysubstance dependance including cocaine. HPI: Patient presented to the hospital for suicidal ideation. "Patient asleep when this auto service writer entered the room but easily arousable. Patient informs this auto service writer that he has been feeling suicidal for the past 1 month and started using cocaine, admits to using 1 gram of cocaine, UDS not done. Patient reports worsening depression even with risperadal consta 50 mg Q14 days and did receive that today. However this auto service writer did call mobile crisis and patient has been rescheduled appoinmtent s since November of 2031. IM was actually received on 02/07/23. Admits to poor memory. Patient also admits to auditory hallucinations loud mumbling no command. Currently staying with ex Letha who brought him to [facility]. Spoke with Letha, patient's ex who brought patient in informed this auto service writer that he does live with her and she has become increasingly concerned about the patient who makes suicidal statements, and is stating that he doesn't want to live anymore and wants to drown in the river." He reports certain things tend to set him off like being yelled at or being called names, will start yelling and swearing. Patient denies any suicidal or homicidal ideation, intent or plan. At this time patient denies any auditory or visual hallucinations. Patient denies any flight of ideas racing thoughts and increased in goal directed behavior. Patient admits to using: He reports he uses marijuana daily, about 3-4 times per day. He reports using cocaine (snorting) about 3 times per day, about 1 gram per day. He reports it is the cocaine that has been making him angry. PAST PSYCHIATRIC HISTORY: Patient states that he has been diagnosed with "psychosis, schizophrenia". Patient reports he takes Risperdal Consta 50 mg IM every 2 weeks. Previously took Invega, Haldol, Risperdal. Past psychiatric hospitalizations: 15 times, most recently 5 years ago. Psychiatric outpatient follow-up: [facility] Patient denies any history of suicide attempts in the past. PMH: denies, "nope" ALLERGIES: as per EMR CHEMICAL DEPENDENCY HISTORY: He reports he previously had an alcohol problem, last used 2 years ago, used to drink about a pint of "dark liquor" per day. He reports he uses marijuana daily, about 3-4 times per day. He reports using cocaine (snorting) about 3 times per day, about 1 gram per day. FAMILY PSYCHIATRIC/SUBSTANCE USE HISTORY: Aunt has psychosis SOCIAL HISTORY: Born and raised in [place], [place]. Parents when he was 2 yo. Has 5 brothers and 1 sister. Graduated high school. He is on SSDI. He used to live in [place], [place], where his father lived and then came back to [place]. He reports he lives with his girlfriend and her autistic son. He has been previously to his current girlfriend, and trying to get back together to get remarried. He does not have children with her. He has 5 children from 2 previous relationships. He does not have contact with him. MENTAL STATUS EXAM: General Appearance: Patient appears to be stated age is alert, directable, and attempts to cooperate. Patient appears to have [poor] hygiene and grooming. Behavior: Patient is seated without any agitated behavior. Speech: Patient's speech is fluent and non-pressured. Mood/Affect: Patient reports their mood is "pretty excellent" now but he does have history of explosive mood, affect is congruent and constricted. Suicidality/Homicidality: Patient denies having any homicidal ideation intent or plan. Denies any suicidal ideation, intent or plan. Perceptions: Patient denies any visual hallucinations and denies any auditory hallucinations. Though content/process: There is no evidence of any delusional thought content and thought process is linear and goal-directed. Memory and concentration: AOX3, grossly intact for the purposes of this session. Can spell "WORLD" backwards Judgment and insight: poor STRENGTHS/WEAKNESSES: Strength is that patient is resilient. Weakness is that patient has poor judgment and is impulsive and has long history of substance abuse. INTELLECT: Average IMPRESSIONS: Schizophrenia, by history Substance-induced mood disorder Cannabis use disorder Cocaine use disorder Alcohol use disorder, in remission Rule out intermittent explosive disorder Rule out ASPD Rule out malingering PLAN: -Patient is admitted under voluntary status to MHU for stabilization of psychiatric symptoms and safety. Patient has signed adult voluntary form and medication consent and is placed in patient's chart. -Medications: Will start patient on Trileptal 150 mg BID for mood stabilization. Continue Risperdal Consta 50 mg IM every 2 weeks for psychosis/mood stabilization. -Ativan and Haldol PRN for agitation/aggression -Patient was counselled on substance abuse and desired to cut back on use -Patient was informed of the risks, benefits and side effects of the medication and patient verbally consented to taking the medications. Patient signed med consent form and was placed in chart. -Internal Medicine consult to perform medical evaluation and physical. -NRT - former smoker - on board for discharge planning. Encourage patient to participate in groups to work on coping skills. Allergies Allergy/AdvReac Type Severity Reaction Status Date / Time No Known Allergies Allergy Verified 02/09/23 19:33 Vital Signs Temp 98.3 F 02/10/23 04:46 Pulse 62 02/10/23 04:46 Resp 17 02/10/23 04:46 BP 126/83 02/10/23 04:46 Pulse Ox 96 02/10/23 04:46 FiO2 Intake & Output 02/09/23 02/10/23 02/10/23 18:59 06:59 18:59 Weight 113.489 kg 110.932 kg 110.932 kg Other: Voiding Method Toilet Laboratory Last Values WBC 5.7 k/uL (3.8-10.6) 02/10/23 06:51 RBC 4.48 m/uL (4.30-5.90) 02/10/23 06:51 Hgb 14.9 gm/dL (13.0-17.5) 02/10/23 06:51 Hct 44.3 % (39.0-53.0) 02/10/23 06:51 MCV 98.8 fL (80.0-100.0) 02/10/23 06:51 MCH 33.1 pg (25.0-35.0) 02/10/23 06:51 MCHC 33.5 g/dL (31.0-37.0) 02/10/23 06:51 RDW 12.1 % (11.5-15.5) 02/10/23 06:51 Plt Count 261 k/uL (150-450) 02/10/23 06:51 MPV 7.6 02/10/23 06:51 Neutrophils % 43 % 02/10/23 06:51 Lymphocytes % 43 % 02/10/23 06:51 Monocytes % 7 % 02/10/23 06:51 Eosinophils % 3 % 02/10/23 06:51 Basophils % 1 % 02/10/23 06:51 Neutrophils # 2.5 k/uL (1.3-7.7) 02/10/23 06:51 Lymphocytes # 2.5 k/uL (1.0-4.8) 02/10/23 06:51 Monocytes # 0.4 k/uL (0-1.0) 02/10/23 06:51 Eosinophils # 0.2 k/uL (0-0.7) 02/10/23 06:51 Basophils # 0.0 k/uL (0-0.2) 02/10/23 06:51 Sodium 137 mmol/L (137-145) 02/10/23 06:51 Potassium 4.6 mmol/L (3.5-5.1) 02/10/23 06:51 Chloride 105 mmol/L (98-107) 02/10/23 06:51 Carbon Dioxide 26 mmol/L (22-30) 02/10/23 06:51 Anion Gap 6 mmol/L 02/10/23 06:51 BUN 6 mg/dL (9-20) L 02/10/23 06:51 Creatinine 1.08 mg/dL (0.66-1.25) 02/10/23 06:51 Est GFR (CKD-EPI)AfAm >90 (>60 ml/min/1.73 sqM) 02/10/23 06:51 Est GFR (CKD-EPI)NonAf 90 (>60 ml/min/1.73 sqM) 02/10/23 06:51 Glucose 88 mg/dL (74-99) 02/10/23 06:[address] Glu mg/dL 106 02/10/23 06:51 Hemoglobin A1c 5.3 % (0.0-6.0) 02/10/23 06:51 Calcium 9.2 mg/dL (8.4-10.2) 02/10/23 06:51 Total Bilirubin 0.6 mg/dL (0.2-1.3) 02/10/23 06:51 AST 32 U/L (17-59) 02/10/23 06:51 ALT 25 U/L (4-49) 02/10/23 06:51 Alkaline Phosphatase 97 U/L (38-126) 02/10/23 06:51 Total Protein 7.3 g/dL (6.3-8.2) 02/10/23 06:51 Albumin 3.9 g/dL (3.5-5.0) 02/10/23 06:51 Triglycerides 305.00 mg/dL (0.00-149.00) H 02/10/23 06:51 Cholesterol 141.00 mg/dL (0.00-200.00) 02/10/23 06:51 LDL Cholesterol, Calc 49.2 mg/dL (0.0-131.0) 02/10/23 06:51 VLDL Cholesterol, Calc 61.00 mg/dL (5.00-40.00) H 02/10/23 06:51 HDL Cholesterol 30.80 mg/dL (40.00-60.00) L 02/10/23 06:51 Cholesterol/HDL Ratio 4.58 Ratio 02/10/23 06:51 Urine Opiates Screen Not Detected (NotDetected) 02/09/23 22:40 Ur Oxycodone Screen Not Detected (NotDetected) 02/09/23 22:40 Urine Methadone Screen Not Detected (NotDetected) 02/09/23 22:40 Ur Propoxyphene Screen Not Detected (NotDetected) 02/09/23 22:40 Ur Barbiturates Screen Not Detected (NotDetected) 02/09/23 22:40 U Tricyclic Antidepress Not Detected (NotDetected) 02/09/23 22:40 Ur Phencyclidine Scrn Not Detected (NotDetected) 02/09/23 22:40 Ur Amphetamines Screen Not Detected (NotDetected) 02/09/23 22:40 U Methamphetamines Scrn Not Detected (NotDetected) 02/09/23 22:40 U Benzodiazepines Scrn Not Detected (NotDetected) 02/09/23 22:40 Urine Cocaine Screen Detected (NotDetected) H 02/09/23 22:40 U Marijuana (THC) Screen Detected (NotDetected) H 02/09/23 22:40 Coronavirus (PCR) Not Detected (Not Detectd) 02/10/23 01:52 02/10/23 18:34 05/13/23 19:08 02/10/23 19:11 02/10/23 20:41 02/10/23 20:44
[2023-02-10] MEDS: OXcarbazepine 150 MG TAB PO SCH (21:43)
--- NOTE | 2023-02-11 00:28 | P.PN ---
Progress Note - Text Progress Note Date: 02/11/23 Attempted to see the patient in the mental health unit. The patient refused to be seen or be evaluated. Will attempt again tomorrow
[2023-02-11] MEDS: OXcarbazepine 150 MG TAB PO SCH ×2 (09:25→21:13)
[2023-02-11] MEDS: NICOTINE 14MG/24HR PATCH TRANSDERM SCH (09:26)
--- NOTE | 2023-02-11 20:14 | P.PN ---
Progress Note - Text Progress Note Date: 02/11/23 Interval history: Patient was seen resting in bed and was directable and agreeable to speak with greeting card writer. He is passively engaged on assessment. He claims his mood is "tired". At this time patient denies any suicidal or homicidal ideation, intent or plan. Denies any auditory or visual hallucinations. Patient denies any side effects from the medications and has been compliant with meds. He reports he is tolerating the addition of Trileptal well and reports benefit form it. He is hopeful for discharge tomorrow. Mental status exam: General Appearance: Patient appears to be stated age, adequate hygiene, wearing glasses. Behavior: No agitated behavior. Patient is calm and directable. Speech: Patient's speech is fluent and non-pressured. Mood/Affect: Mood is improving mildly, affect is congruent and constricted. Suicidality/Homicidality: Patient denies having any suicidal or homicidal ideation intent or plan. Perceptions: Patient denies any auditory or visual hallucinations. Though content/process: There is no evidence of any delusional thought content and thought process is linear and goal-directed. Memory and concentration: AOX3, grossly intact for the purposes of this session Judgment and insight: improving mildly Assessment/Plan: Continue with current diagnosis. Patient continues to meet criteria for inpatient psychiatric admission for symptom stabilization and safety. Patient will be maintained on current psychotropic medication regimen. Monitor for medication compliance and for any psychotropic medication side effects. Will continue to monitor ongoing response to treatment. Encouraged participation in milieu. Consider discharge tomorrow if he continues to stabilize.
--- NOTE | 2023-02-11 23:19 | P.CONS ---
History of Present Illness - Reason for Consult Consult date: 02/11/23 - History of Present Illness The patient is a 32-year-old male with a PMH of substance abuse including cocaine and marijuana who had presented to the emergency room with complaints of depression and suicidal ideation. The patient was admitted to the mental health unit where he was seen and evaluated. Patient states that he had been undergoing a lot recently and that he simply needed a break. He reports smoking half pack of cigarettes daily as well as using marijuana currently. He reports a prior history of cocaine use. Also reports drinking a pint of liquor every week. He denied any physical complaints at the time of interview. He denied experiencing chest discomfort, shortness of breath, fever, chills, cough, nausea, vomiting, abdominal pain, diarrhea. Review of systems: Pertinent positives and negatives as discussed in HPI, a complete review of systems was performed and all other systems are negative. Physical examination: General: non toxic, no distress, appears at stated age, obese Derm: no unusual rashes/lesions, no unusual ecchymoses, warm, dry Head: atraumatic, normocephalic, symmetric Eyes: EOMI, no lid lag, anicteric sclera ENT: Nose and ears atraumatic, no thrush, no pharyngeal erythema Neck: trachea midline, supple Mouth: no lip lesion, mucus membranes moist Cardiovascular: S1S2 reg, no murmur, no edema Lungs: CTA bilateral, no rhonchi, no rales , no accessory muscle use Abdominal: soft, nontender to palpation, no guarding Ext: no gross muscle atrophy, no contractures, Neuro: No gross focal neuro deficits noted Psych: Alert, oriented, appropriate affect Assessment: Polysubstance abuse, alcohol abuse Depression and suicidal ideation Elevated triglycerides Imaging: None performed Data Review: Laboratory evaluation was reviewed with urine toxicology positive for cocaine and marijuana, HDL 30, VLDL 61 with triglycerides 305. Plan: Strongly advised on importance of alcohol and substance use Also advised the patient on importance of lifestyle modification for improvements of hypertriglyceridemia Advised patient to follow-up with his PCP since he may require statin Thank you for allowing us to participate in the care of this patient. We will follow peripherally. Do not hesitate to contact us with questions. Someone can be reached from the [facility] hospitalist group at all hours of the day at [phone]. Past Medical History Past Medical History: Asthma, Eye Disorder Additional Past Medical History / Comment(s): pt states he is nearsighted and has asthma History of Any Multi-Drug Resistant Organisms: None Reported Past Surgical History: No Surgical Hx Reported Past Anesthesia/Blood Transfusion Reactions: No Reported Reaction Additional Past Anesthesia/Blood Transfusion Reaction / Comm: has not had any anesthesia or tranfusions Smoking Status: Current every day smoker - Past Family History Father Family Medical History: No Reported History Additional Family Medical History / Comment(s): Father is alive with no major medical problems. Mother Family Medical History: No Reported History Additional Family Medical History / Comment(s): Mother in 2007. Patient does not know her age at the time and could be related to alcohol problems. Brother(s) Additional Family Medical History / Comment(s): Patient has 5 brothers and one from problems with alcohol. The other 4 brothers have no major medical problems. Patient has one sister that is healthy. Patient has 3 daughters that are healthy. Medications and Allergies Home Medications Medication Instructions Recorded Confirmed Type risperiDONE MICROSPHERES 50 mg IM Q14D 02/09/23 02/09/23 History [[facility]] Allergies Allergy/AdvReac Type Severity Reaction Status Date / Time No Known Allergies Allergy Verified 02/09/23 19:33 Physical Exam Vitals: Intake and Output 02/11/23 02/11/23 02/12/23 14:59 22:59 06:59 Other: Weight 110.8 kg Results CBC & Chem 7: 02/10/23 06:51 02/10/23 06:51
[2023-02-12 06:35] VITALS: BP 121/79; PULSE 74; RESP 16; TEMP 97.8
[2023-02-12] MEDS: OXcarbazepine 150 MG TAB PO SCH (09:20)
[2023-02-12] MEDS: NICOTINE 14MG/24HR PATCH TRANSDERM SCH (09:20)
--- NOTE | 2023-02-12 12:18 | P.PN ---
Subjective Progress Note Date: 02/12/23 Principal diagnosis: Discharge summary and progress note HE was seen today and his progress was reviewed at team meeting. He no longer complained of amnesia; no memory fog . He seemed to have recover from the acute [employer]VENUE [employer]AMP [employer]TER effects of substances of abusepolysubstnace use; MDMA, alcohol. He did not have DT or withdrawal seizure. MSE: He was cooperative, engaging well. with no psychotic features of delusons or hallucinations. No suicidal or homicidal ideation. He was compliant with Rx. Cog. oriented. insight judgment has advanced Discharge Diagnosis: Schizoaffective Disorder in partial remission. [place] Rx; risperidol incrospheres 50 mg im q2 week to due in late January Trileptal 150 mg po bid dosage to be titrated upwards Objective - Vital Signs Vital signs: Vital Signs Temp 97.8 F 02/12/23 06:35 Pulse 74 02/12/23 06:35 Resp 16 02/12/23 06:35 BP 121/79 02/12/23 06:35 Pulse Ox 98 02/12/23 06:35 FiO2 Intake & Output 02/11/23 02/12/23 02/12/23 18:59 06:59 18:59 Weight 110.8 kg - Labs CBC & Chem 7: 02/10/23 06:51 02/10/23 06:51
--- NOTE | 2023-02-12 12:36 | P.DS ---
Providers Date of admission: 02/10/23 02:45 Attending physician: Shekhar Chen MD Consults: 02/10/23 03:17 Consult Physician Routine Consulting Provider: Adelina Cedillo Consult Reason/Comments: H&P for mental Health admission Do you want consulting provider notified?: Yes Primary care physician: Stated None Patient Condition at Discharge: Stable Plan - Discharge Summary Discharge Rx Participant: No New Discharge Prescriptions: New OXcarbazepine [Trileptal] 150 mg PO BID 30 Days #60 tab No Action risperiDONE MICROSPHERES [RisperDAL Consta] 50 mg IM Q14D Discharge Medication List risperiDONE MICROSPHERES [RisperDAL Consta] 50 mg IM Q14D 02/09/23 [History] OXcarbazepine [Trileptal] 150 mg PO BID 30 Days #60 tab 02/12/23 [Rx] Follow up Appointment(s)/Referral(s): [facility] [Outside] - 02/15/23 10:00 am (02/15/2023 10:00AM - 11:00AM DAVID HUSSEIN 02/21/2023 11:00AM - 11:15AM Generic Nurse 02/21/2023 1:30PM - 2:30PM DORIS GONZALEZ ) None,Stated [Primary Care Provider] - 1-2 days Activity/Diet/Wound Care/Special Instructions: Avoid the use of street drugs and alcohol. Take all medications as prescribed. When you are in need of refills on your medications, please contact your medical provider and/or outpatient psychiatrist to have this done. Please go to scheduled outpatient appointments for aftercare treatment. If symptoms return or become worse, call the crisis line at and/or go to the nearest emergency room for evaluation.
== END 2023-02-12 13:58 | disposition home or self-care (01) | DRG 885 ==
LOC: EC 17:23 → 3MHU 02-10 02:45
PROVIDERS: ADMIT Psychiatry & Neurology Psychiatry; ATTEND Psychiatry & Neurology Psychiatry
DX: F25.9 Schizoaffective disorder, unspecified (principal); R45.851 Suicidal ideations; F32.A Depression, unspecified; F10.10 Alcohol abuse, uncomplicated; J45.909 Unspecified asthma, uncomplicated; F19.94 Other psychoactive substance use, unspecified with psychoactive substance-induced mood disorder; F14.10 Cocaine abuse, uncomplicated; F12.10 Cannabis abuse, uncomplicated; E78.1 Pure hyperglyceridemia; F17.210 Nicotine dependence, cigarettes, uncomplicated; Z20.822 Contact with and (suspected) exposure to COVID-19; Z79.899 Other long term (current) drug therapy; Z71.41 Alcohol abuse counseling and surveillance of alcoholic; Z71.51 Drug abuse counseling and surveillance of drug abuser; Z28.310 Unvaccinated for COVID-19; Z71.3 Dietary counseling and surveillance
CPT/HCPCS: 80053; 80061; 80306; 82075; 83036; 84443; 85025; 87635; 99285

== ENCOUNTER 2023-07-07 13:04 | Emergency (ER) | payer MEDICAID, MEDICARE, OTHER ==
[2023-07-07 13:10] VITALS: TEMP 98.1
--- NOTE | 2023-07-07 13:47 | ED ---
General Adult HPI - General Chief complaint: Chest Pain Stated complaint: chest pains Time Seen by Provider: 07/07/23 13:10 Source: patient, RN notes reviewed, old records reviewed Mode of arrival: ambulatory Limitations: no limitations - History of Present Illness Initial comments: This is a 33-year-old male who presents emergency Department with no significant past medical history except for smoking. Patient comes in today because he states for the last 2-3 months she's been having occasional sharp left-sided chest pain that last 2-3 seconds and then it goes away. Patient states sometimes it happens a couple times a day and then he has been having for days and then it occurs again. Patient states that he has done no heavy lifting or moving recently patient denies being able to reproduce it. Patient denies palpating reproduces it. Patient denies any fever chills or cough. Patient denies any shortness of breath or difficulty breathing. Patient denies any palpitations. Patient denies any abdominal pain patient states currently is not having any pain - Related Data Home Medications Medication Instructions Recorded Confirmed risperiDONE MICROSPHERES 50 mg IM Q14D 02/09/23 02/09/23 [RisperDAL Consta] Previous Rx's Medication Instructions Recorded OXcarbazepine [Trileptal] 150 mg PO BID 30 Days #60 tab 02/12/23 Allergies Allergy/AdvReac Type Severity Reaction Status Date / Time No Known Allergies Allergy Verified 07/07/23 13:10 Review of Systems ROS Statement: Those systems with pertinent positive or pertinent negative responses have been documented in the HPI. ROS Other: All systems not noted in ROS Statement are negative. Past Medical History Past Medical History: Asthma, Eye Disorder Additional Past Medical History / Comment(s): pt states he is nearsighted and has asthma History of Any Multi-Drug Resistant Organisms: None Reported Past Surgical History: No Surgical Hx Reported Past Anesthesia/Blood Transfusion Reactions: No Reported Reaction Additional Past Anesthesia/Blood Transfusion Reaction / Comment(s): has not had any anesthesia or tranfusions Past Psychological History: Anxiety, Depression, Schizophrenia Smoking Status: Current every day smoker Past Alcohol Use History: None Reported Past Drug Use History: Marijuana - Past Family History Father Family Medical History: No Reported History Additional Family Medical History / Comment(s): Father is alive with no major medical problems. Mother Family Medical History: No Reported History Additional Family Medical History / Comment(s): Mother in 2007. Patient does not know her age at the time and could be related to alcohol problems. Brother(s) Additional Family Medical History / Comment(s): Patient has 5 brothers and one from problems with alcohol. The other 4 brothers have no major medical problems. Patient has one sister that is healthy. Patient has 3 daughters that are healthy. General Exam - General Exam Comments Initial Comments: GENERAL: Patient is well-developed and well-nourished. Patient is nontoxic and well- hydrated and is in no acute distress. Patient smells of marijuana and states he was smoking marijuana today ENT: Neck is soft and supple. No significant lymphadenopathy is noted. Oropharynx is clear. Moist mucous membranes. Neck has full range of motion without eliciting any pain. EYES: The sclera were anicteric and conjunctiva were pink and moist. Extraocular movements were intact and pupils were equal round and reactive to light. Eyelids were unremarkable. PULMONARY: Unlabored respirations. Good breath sounds bilaterally. No audible rales rhonchi or wheezing was noted. CARDIOVASCULAR: There is a regular rate and rhythm without any murmurs gallops or rubs. ABDOMEN: Soft and nontender with normal bowel sounds. SKIN: Skin is clear with no lesions or rashes and otherwise unremarkable. NEUROLOGIC: Patient is alert and oriented x3. Cranial nerves II through XII are grossly intact. Motor and sensory are also intact. Normal speech, volume and content. Symmetrical smile. MUSCULOSKELETAL: Normal extremities with adequate strength and full range of motion. LYMPHATICS: No significant lymphadenopathy is noted PSYCHIATRIC: Normal psychiatric evaluation. Limitations: no limitations Course Vital Signs 07/07/23 13:08 Temperature 98.1 F Pulse Rate 80 Respiratory 20 Rate Blood Pressure 127/81 O2 Sat by Pulse 97 Oximetry Medical Decision Making - Medical Decision Making EKG is interpreted by myself. EKG shows sinus bradycardia 58 bpm IN interval 185 QRS is 106 QT interval 41 QTC is 399. EKG shows early repolarization. Was pt. sent in by a medical professional or institution (, PA, EPIC TRAINER, urgent care, hospital, or care home...) When possible be specific @ -No Did you speak to anyone other than the patient for history (EMS, parent, family, police, friend...)? What history was obtained from this source @ -No Did you review nursing and triage notes (agree or disagree)? Why? @ -I reviewed and agree with nursing and triage notes Were old charts reviewed (outside hosp., previous admission, EMS record, old EKG, old radiological studies, urgent care reports/EKG's, care home records)? Report findings @ -I reviewed prior charts and lab work Differential Diagnosis (chest pain, altered mental status, abdominal pain women, abdominal pain men, vaginal bleeding, weakness, fever, dyspnea, syncope, headache, dizziness, GI bleed, back pain, seizure, CVA, palpatations, mental health, musculoskeletal)? @ -Differential Chest Pain: Stable Angina, Unstable Angina, STEMI, NSTEMI Aortic Dissection, Pneumothorax, Musculoskeletal, Esophageal Spasm GERD, Cholecystitis, Pancreatitis, Zoster, this is not meant to be an all-inclusive list. EKG interpreted by me (3pts min.). @ -As above X-rays interpreted by me (1pt min.). @ -Chest x-ray shows no acute abnormality CT interpreted by me (1pt min.). @ -None done U/S interpreted by me (1pt. min.). @ -None done What testing was considered but not performed or refused? (CT, X-rays, U/S, labs)? Why? @ -None What meds were considered but not given or refused? Why? @ -None Did you discuss the management of the patient with other professionals (professionals i.e. , PA, EPIC TRAINER, lab, RT, psych nurse, social worker psychiatric, tester rocket engine, teacher, corporate trust officer, correctional casework specialist)? Give summary @ -No Was smoking cessation discussed for >3mins.? @ -No Was critical care preformed (if so, how long)? @ -No Were there social determinants of health that impacted care today? How? (Homelessness, low income, unemployed, alcoholism, drug addiction, transportation, low edu. Level, literacy, decrease access to med. care, assisted, rehab)? @ -No Was there de-escalation of care discussed even if they declined (Discuss DNR or withdrawal of care, Hospice)? DNR status @ -No What co-morbidities impacted this encounter? (DM, HTN, Smoking, COPD, CAD, Cancer, CVA, ARF, Chemo, Hep., AIDS, mental health diagnosis, sleep apnea, morbid obesity)? @ -None Was patient admitted / discharged? Hospital course, mention meds given and route, prescriptions, significant lab abnormalities, going to OR and other pertinent info. @ -Patient's lab work was all normal. Patient's chest x-ray is normal. Patient was not having any chest pain throughout his ED course. Undiagnosed new problem with uncertain prognosis? @ -No Drug Therapy requiring intensive monitoring for toxicity (Heparin, Nitro, Insulin, Cardizem)? @ -No Were any procedures done? @ -No Diagnosis/symptom? @ -Atypical chest pain Acute, or Chronic, or Acute on Chronic? @ -Acute Uncomplicated (without systemic symptoms) or Complicated (systemic symptoms)? @ -Complicated Side effects of treatment? @ -No Exacerbation, Progression, or Severe Exacerbation? @ -No Poses a threat to life or bodily function? How? (Chest pain, USA, IA, pneumonia, PE, COPD, DKA, ARF, appy, cholecystitis, CVA, Diverticulitis, Homicidal, Suicidal, threat to staff... and all critical care pts) @ -No - Lab Data Result diagrams: 07/07/23 14:13 07/07/23 14:13 Lab Results 07/07/23 07/07/23 07/07/23 Range/Units 14:13 14:13 14:13 WBC 6.9 (3.8-10.6) k/uL RBC 4.20 L (4.30-5.90) m/uL Hgb 14.1 (13.0-17.5) gm/dL Hct 42.4 (39.0-53.0) % MCV 100.9 H (80.0-100.0) fL MCH 33.4 (25.0-35.0) pg MCHC 33.1 (31.0-37.0) g/dL RDW 11.9 (11.5-15.5) % Plt Count 251 (150-450) k/uL MPV 7.7 Neutrophils % 54 % Lymphocytes % 35 % Monocytes % 6 % Eosinophils % 2 % Basophils % 0 % Neutrophils # 3.8 (1.3-7.7) k/uL Lymphocytes # 2.4 (1.0-4.8) k/uL Monocytes # 0.4 (0-1.0) k/uL Eosinophils # 0.2 (0-0.7) k/uL Basophils # 0.0 (0-0.2) k/uL Sodium 138 (137-145) mmol/L Potassium 4.3 (3.5-5.1) mmol/L Chloride 106 (98-107) mmol/L Carbon Dioxide 24 (22-30) mmol/L Anion Gap 8 mmol/L BUN 8 L (9-20) mg/dL Creatinine 0.91 (0.66-1.25) mg/dL Est GFR (CKD-EPI)AfAm >90 (>60 ml/min/1.73 sqM) Est GFR (CKD-EPI)NonAf >90 (>60 ml/min/1.73 sqM) Glucose 85 (74-99) mg/dL Calcium 9.5 (8.4-10.2) mg/dL Magnesium 2.1 (1.6-2.3) mg/dL Total Bilirubin 0.5 (0.2-1.3) mg/dL AST 27 (17-59) U/L ALT 21 (4-49) U/L Alkaline Phosphatase 88 (38-126) U/L Troponin I <0.012 (0.000-0.034) ng/mL Total Protein 7.3 (6.3-8.2) g/dL Albumin 4.0 (3.5-5.0) g/dL Disposition Clinical Impression: Atypical chest pain Disposition: HOME SELF-CARE Condition: Good Instructions (If sedation given, give patient instructions): Chest Pain (ED) Is patient prescribed a controlled substance at d/c from ED?: No Referrals: Nonstaff,Physician [Primary Care Provider] - 1-2 days Time of Disposition: 14:46
[2023-07-07 14:19] LABS: Basophils % (A) 0 %; Eosinophils # (A) 0.2 k/uL (0-0.7); Eosinophils % (A) 2 %; HCT 42.4 % (39.0-53.0); HGB 14.1 gm/dL (13.0-17.5); Lymphocytes # (A) 2.4 k/uL (1.0-4.8); Lymphocytes % (A) 35 %; MCH 33.4 pg (25.0-35.0); MCHC 33.1 g/dL (31.0-37.0); MCV 100.9 fL (80.0-100.0); Mean Platelet Volume 7.7; Monocytes # (A) 0.4 k/uL (0-1.0); Monocytes % (A) 6 %; Neutrophils # (A) 3.8 k/uL (1.3-7.7); Neutrophils % (A) 54 %; Platelet Count 251 k/uL (150-450); RDW 11.9 % (11.5-15.5); WBC 6.9 k/uL (3.8-10.6)
[2023-07-07 14:28] LABS: ALT 21 U/L (4-49); AST 27 U/L (17-59); African American GFR (CKD) >90 (>60 ml/min/1.73 sqM); Alkaline Phosphatase 88 U/L (38-126); Anion Gap 8 mmol/L; Blood Urea Nitrogen 8 mg/dL (9-20); Calcium 9.5 mg/dL (8.4-10.2); Carbon Dioxide 24 mmol/L (22-30); Chloride 106 mmol/L (98-107); Glucose 85 mg/dL (74-99); Magnesium 2.1 mg/dL (1.6-2.3); Non-African American GFR(CKD) >90 (>60 ml/min/1.73 sqM); Potassium 4.3 mmol/L (3.5-5.1); Sodium 138 mmol/L (137-145); Total Bilirubin 0.5 mg/dL (0.2-1.3); Total Protein 7.3 g/dL (6.3-8.2)
--- NOTE | 2023-07-07 14:35 | XR ---
EXAMINATION TYPE: XR chest 2V DATE OF EXAM: 07/07/2023 COMPARISON: NONE HISTORY: Chest pain TECHNIQUE: Frontal and lateral views of the chest are obtained. FINDINGS: There is no focal air space opacity, pleural effusion, or pneumothorax seen. The cardiac silhouette size is within normal limits. The osseous structures are intact. IMPRESSION: No acute cardiopulmonary process.
[2023-07-07 15:17] VITALS: BP 132/88; PULSE 60; RESP 18
== END 2023-07-07 15:14 | disposition home or self-care (01) ==
LOC: EC 13:04
DX: R07.89 Other chest pain (principal); J45.909 Unspecified asthma, uncomplicated; F41.9 Anxiety disorder, unspecified; F32.A Depression, unspecified; F17.200 Nicotine dependence, unspecified, uncomplicated; F12.90 Cannabis use, unspecified, uncomplicated; Z79.899 Other long term (current) drug therapy
CPT/HCPCS: 36415; 71046; 80053; 83735; 84484; 85025; 93005; 99285

== ENCOUNTER 2023-07-10 05:36 | Emergency (ER) | payer MEDICARE, OTHER ==
--- NOTE | 2023-07-10 08:15 | ED ---
General Adult HPI - General Source: patient, RN notes reviewed Mode of arrival: ambulatory Limitations: no limitations <Elizabeth Bell - Last Filed: 07/11/23 11:43> <Amy Terrell - Last Filed: 07/15/23 23:22> - General Chief complaint: Psychiatric Symptoms Stated complaint: Mental health Time Seen by Provider: 07/10/23 08:15 - History of Present Illness Initial comments: 33 year old male presents to the emergency department with a chief complaint of feeling suicidal. Patient denies active plan. (Elizabeth Bell) 33-year-old male with reported history of schizophrenia who presents to the emergency department reporting depression. States that for the past 5 days he has had worsening depression with thoughts of suicide. States he has a plan but does not voice to me this plan. Reports that his family lives out of town. He does not have a good support system. He takes Risperdal daily and has been taking the medications however it has not been helping his mood. He admits to using marijuana and some alcohol to help cope. He denies any alcohol use in the past day. He denies homicidal ideations. Patient follows with [facility]. No other alleviating, precipitating or modifying factors (Amy Terrell) - Related Data Home Medications Medication Instructions Recorded Confirmed risperiDONE MICROSPHERES 50 mg IM Q14D 02/09/23 07/10/23 [RisperDAL Consta] Allergies Allergy/AdvReac Type Severity Reaction Status Date / Time No Known Allergies Allergy Verified 07/10/23 16:54 Review of Systems ROS Other: All systems not noted in ROS Statement are negative. <Elizabeth Bell - Last Filed: 07/11/23 11:43> ROS Other: All systems not noted in ROS Statement are negative. <Amy Terrell - Last Filed: 07/15/23 23:22> ROS Statement: Those systems with pertinent positive or pertinent negative responses have been documented in the HPI. Past Medical History Past Medical History: Asthma, Eye Disorder Additional Past Medical History / Comment(s): pt states he is nearsighted and has asthma History of Any Multi-Drug Resistant Organisms: None Reported Past Surgical History: No Surgical Hx Reported Past Anesthesia/Blood Transfusion Reactions: No Reported Reaction Additional Past Anesthesia/Blood Transfusion Reaction / Comment(s): has not had any anesthesia or tranfusions Past Psychological History: Anxiety, Depression, Schizophrenia Smoking Status: Current every day smoker Past Alcohol Use History: None Reported Past Drug Use History: Marijuana - Past Family History Father Family Medical History: No Reported History Additional Family Medical History / Comment(s): Father is alive with no major medical problems. Mother Family Medical History: No Reported History Additional Family Medical History / Comment(s): Mother in 2007. Patient does not know her age at the time and could be related to alcohol problems. Brother(s) Additional Family Medical History / Comment(s): Patient has 5 brothers and one from problems with alcohol. The other 4 brothers have no major medical problems. Patient has one sister that is healthy. Patient has 3 daughters that are healthy. <Elizabeth Bell - Last Filed: 07/11/23 11:43> General Exam Limitations: no limitations <Elizabeth Bell - Last Filed: 07/11/23 11:43> General appearance: alert, in no apparent distress Head exam: Present: atraumatic, normocephalic, normal inspection Eye exam: Present: normal appearance, PERRL, EOMI. Absent: scleral icterus, conjunctival injection, periorbital swelling ENT exam: Present: normal exam, mucous membranes moist Neck exam: Present: normal inspection. Absent: tenderness, meningismus, lymphadenopathy Respiratory exam: Present: normal lung sounds bilaterally. Absent: respiratory distress, wheezes, rales, rhonchi, stridor Cardiovascular Exam: Present: regular rate, normal rhythm, normal heart sounds. Absent: systolic murmur, diastolic murmur, rubs, gallop, clicks GI/Abdominal exam: Present: soft, normal bowel sounds. Absent: distended, tenderness, guarding, rebound, rigid Extremities exam: Present: normal inspection, full ROM, normal capillary refill. Absent: tenderness, pedal edema, joint swelling, calf tenderness Back exam: Present: normal inspection Neurological exam: Present: alert, oriented X3, CN II-XII intact Psychiatric exam: Present: depressed, flat affect, suicidal ideation Skin exam: Present: warm, dry, intact, normal color. Absent: rash <Amy Terrell - Last Filed: 07/15/23 23:22> - General Exam Comments Initial Comments: Visual Physical Exam Vital signs reviewed General: Well-appearing, nontoxic, no acute distress. Head: Normocephalic, atraumatic Eyes: PERRLA, EOMI ENT: Airway patent Chest: Nonlabored breathing Skin: No visual rash, normal skin tone Neuro: Alert and oriented 3 Musculoskeletal: No gross abnormalities I performed the quick note portion of this exam, verbal signature Elizabeth Bell PA-C (Elizabeth Bell) Course Vital Signs 07/10/23 07/10/23 07/10/23 06:00 08:32 12:00 Temperature 97.6 F 98.6 F Pulse Rate 84 86 86 Respiratory 18 16 16 Rate Blood Pressure 134/89 130/80 120/80 O2 Sat by Pulse 98 98 98 Oximetry 07/10/23 16:54 Temperature Pulse Rate 86 Respiratory 20 Rate Blood Pressure 150/80 O2 Sat by Pulse 98 Oximetry Medical Decision Making <Amy Terrell A - Last Filed: 07/15/23 23:22> - Medical Decision Making Was pt. sent in by a medical professional or institution ([facility], [facility], urgent care, hospital, or senior living...) When possible be specific @ -No Did you speak to anyone other than the patient for history (EMS, parent, family, police, friend...)? What history was obtained from this source @ -No Did you review nursing and triage notes (agree or disagree)? Why? @ -I reviewed and agree with nursing and triage notes Were old charts reviewed (outside hosp., previous admission, EMS record, old EKG, old radiological studies, urgent care reports/EKG's, senior living records)? Report findings @ -I reviewed previous encounters on the patient. Was recently in the emergency department for chest pain Differential Diagnosis (chest pain, altered mental status, abdominal pain women, abdominal pain men, vaginal bleeding, weakness, fever, dyspnea, syncope, headache, dizziness, GI bleed, back pain, seizure, CVA, palpatations, mental health, musculoskeletal)? @ -Differential Mental Health Depression, anxiety, bipolar, psychosis, schizophrenia, borderline personality, situational depression, adjustment disorder, behavioral disorder, brain tumor, malingering, substance abuse, encephalopathy, medication reaction, dementia, hypothyroidism, degenerative neurologic disorder, lupus.... This is not meant to be all-inclusive list EKG interpreted by me (3pts min.). @ -Not done X-rays interpreted by me (1pt min.). @ -None done CT interpreted by me (1pt min.). @ -None done U/S interpreted by me (1pt. min.). @ -None done What testing was considered but not performed or refused? (CT, X-rays, U/S, labs)? Why? @ -None What meds were considered but not given or refused? Why? @ -None Did you discuss the management of the patient with other professionals (professionals i.e. , PA, [employer] [employer], lab, RT, psych nurse, aids social worker, resident care associate, teacher, cra officer, catalytic case operator)? Give summary @ -Spoke with the EPS nurse in regards to symptoms Was smoking cessation discussed for >3mins.? @ -No Was critical care preformed (if so, how long)? @ -No Were there social determinants of health that impacted care today? How? (Homelessness, low income, unemployed, alcoholism, drug addiction, transportation, low edu. Level, literacy, decrease access to med. care, skilled nursing, rehab)? @ -No Was there de-escalation of care discussed even if they declined (Discuss DNR or withdrawal of care, Hospice)? DNR status @ -No What co-morbidities impacted this encounter? (DM, HTN, Smoking, COPD, CAD, Cancer, CVA, ARF, Chemo, Hep., AIDS, mental health diagnosis, sleep apnea, morbid obesity)? @ -Schizophrenia Was patient admitted / discharged? Hospital course, mention meds given and route, prescriptions, significant lab abnormalities, going to OR and other pertinent info. @ -Upon arrival patient is placed in room 16. Thorough history and physical exam was performed. Patient is not intoxicated. He does voice depression with suicidal ideations. Patient is cleared for EPS evaluation at this time Undiagnosed new problem with uncertain prognosis? @ -No Drug Therapy requiring intensive monitoring for toxicity (Heparin, Nitro, Insulin, Cardizem)? @ -No Were any procedures done? @ -No Diagnosis/symptom? @ -Acute depression, suicidal ideations Acute, or Chronic, or Acute on Chronic? @ -Acute Uncomplicated (without systemic symptoms) or Complicated (systemic symptoms)? @ -Complicated Side effects of treatment? @ -No Exacerbation, Progression, or Severe Exacerbation? @ -No Poses a threat to life or bodily function? How? (Chest pain, [place], [place], pneumonia, PE, COPD, DKA, ARF, appy, cholecystitis, CVA, Diverticulitis, Homicidal, Suicidal, threat to staff... and all critical care pts) @ -Yes patient does report to suicidal ideations (Amy Terrell) - Lab Data Lab Results 07/10/23 07/10/23 Range/Units 08:14 08:14 Urine Opiates Screen Not Detected (NotDetected) Ur Oxycodone Screen Not Detected (NotDetected) Urine Methadone Screen Not Detected (NotDetected) Ur Propoxyphene Screen Not Detected (NotDetected) Ur Barbiturates Screen Not Detected (NotDetected) U Tricyclic Antidepress Not Detected (NotDetected) Ur Phencyclidine Scrn Not Detected (NotDetected) Ur Amphetamines Screen Not Detected (NotDetected) U Methamphetamines Scrn Not Detected (NotDetected) U Benzodiazepines Scrn Not Detected (NotDetected) Urine Cocaine Screen Detected H (NotDetected) U Marijuana (THC) Screen Detected H (NotDetected) Influenza Type A (PCR) Not Detected (Not Detectd) Influenza Type B (PCR) Not Detected (Not Detectd) RSV (PCR) Not Detected (Not Detectd) SARS-CoV-2 (PCR) Not Detected (Not Detectd) Disposition <Elizabeth Bell - Last Filed: 07/11/23 11:43> Is patient prescribed a controlled substance at d/c from ED?: No <Amy Terrell - Last Filed: 07/15/23 23:22> Clinical Impression: Depression Disposition: HOME SELF-CARE Condition: Stable Referrals: None,Stated [Primary Care Provider] - 1-2 days
[2023-07-10 08:42] VITALS: PULSE 86; TEMP 98.6
[2023-07-10 08:57] LABS: Amphetamine Screen,Urine Not Detected (NotDetected); Barbiturate Screen,Urine Not Detected (NotDetected); Benzodiazepines Screen,Urine Not Detected (NotDetected); Cocaine Screen,Urine Detected (NotDetected); Methadone Screen, Urine Not Detected (NotDetected); Opiate Screen,Urine Not Detected (NotDetected); Oxycodone Screen, Urine Not Detected (NotDetected); Phencyclidine Screen,Urine Not Detected (NotDetected); Tricyclic Antidepressant,Urine Not Detected (NotDetected); Urn Cannabinoid Scrn Detected (NotDetected)
[2023-07-10 17:00] VITALS: BP 150/80; RESP 20
== END 2023-07-10 16:56 | disposition home or self-care (01) ==
LOC: EC 05:36
DX: F32.A Depression, unspecified (principal); R45.851 Suicidal ideations; J45.909 Unspecified asthma, uncomplicated; F41.9 Anxiety disorder, unspecified; F17.200 Nicotine dependence, unspecified, uncomplicated; F12.90 Cannabis use, unspecified, uncomplicated; Z79.899 Other long term (current) drug therapy; Z20.822 Contact with and (suspected) exposure to COVID-19
CPT/HCPCS: 80306; 82075; 87636; 99285

== ENCOUNTER 2024-03-16 11:12 | Emergency (ER) | payer MEDICAID, MEDICARE ==
[2024-03-16 11:19] VITALS: BP 124/86; PULSE 104; RESP 18; TEMP 97.5
--- NOTE | 2024-03-16 11:56 | ED ---
Chest Pain HPI - General Chief Complaint: Chest Pain Stated Complaint: Chest pain Time Seen by Provider: 03/16/24 11:54 Source: patient, RN notes reviewed Mode of arrival: ambulatory Limitations: no limitations - History of Present Illness Initial Comments: 34-year-old male presenting with chest pain x 5 months. States the pain has been worsening over the past couple days which prompted him to come to the ER. Describes the pain as sharp. States the pain occurs randomly and is sometimes on the left side of the chest and sometimes on the right side of the chest. Pain does not radiate. Reports he smokes 1 pack of cigarettes per day. Denies exertional symptoms. Denies shortness of breath, fevers, chills, cough, flu- like symptoms, palpitations. Denies known cardiac history. He has been seen for this in the ER before and he was discharged with no diagnosis. - Related Data Home Medications Medication Instructions Recorded Confirmed risperiDONE microspheres 50 mg IM Q14D 02/09/23 07/10/23 [RisperDAL Consta] Allergies Allergy/AdvReac Type Severity Reaction Status Date / Time No Known Allergies Allergy Verified 03/16/24 11:19 Review of Systems ROS Statement: Those systems with pertinent positive or pertinent negative responses have been documented in the HPI. ROS Other: All systems not noted in ROS Statement are negative. 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 Ventricular rate 92 bpm, MS interval 144, QRS duration 88, QT/QTc 337/387.) Past Medical History Past Medical History: Asthma, Eye Disorder Additional Past Medical History / Comment(s): pt states he is nearsighted and h as asthma History of Any Multi-Drug Resistant Organisms: None Reported Past Surgical History: No Surgical Hx Reported Past Anesthesia/Blood Transfusion Reactions: No Reported Reaction Additional Past Anesthesia/Blood Transfusion Reaction / Comment(s): has not had any anesthesia or tranfusions Past Psychological History: Anxiety, Depression, Schizophrenia Smoking Status: Current every day smoker Past Alcohol Use History: None Reported Past Drug Use History: Marijuana - Past Family History Father Family Medical History: No Reported History Additional Family Medical History / Comment(s): Father is alive with no major medical problems. Mother Family Medical History: No Reported History Additional Family Medical History / Comment(s): Mother in 2007. Patient does not know her age at the time and could be related to alcohol problems. Brother(s) Additional Family Medical History / Comment(s): Patient has 5 brothers and one from problems with alcohol. The other 4 brothers have no major medical problems. Patient has one sister that is healthy. Patient has 3 daughters that are healthy. General Exam - General Exam Comments Initial Comments: Visual Physical Exam Vital signs reviewed General: Well-appearing, nontoxic, no acute distress. Head: Normocephalic, atraumatic Eyes: PERRLA, EOMI ENT: Airway patent Chest: Nonlabored breathing Skin: No visual rash, normal skin tone Neuro: Alert and oriented 3 Musculoskeletal: No gross abnormalities Limitations: no limitations Course Vital Signs 03/16/24 11:17 Temperature 97.5 F L Pulse Rate 104 H Respiratory 18 Rate Blood Pressure 124/86 O2 Sat by Pulse 96 Oximetry Chest Pain MDM - MDM I completed the quick note portion of this chart signed Kassidy Capps PA-C Patient left AGAINST MEDICAL ADVICE before workup was complete Disposition Clinical Impression: Chest pain Disposition: LEFT AGAINST MEDICAL ADVICE Referrals: None,Stated [Primary Care Provider] - 1-2 days
== END 2024-03-16 14:03 | disposition left against medical advice (07) ==
LOC: EC 11:12
DX: R07.89 Other chest pain (principal); F17.200 Nicotine dependence, unspecified, uncomplicated; F12.90 Cannabis use, unspecified, uncomplicated; Z53.29 Procedure and treatment not carried out because of patient's decision for other reasons
CPT/HCPCS: 93005; 99284

== ENCOUNTER 2024-07-26 07:41 | Emergency (ER) | payer MEDICARE ==
[2024-07-26 07:49] VITALS: RESP 18
--- NOTE | 2024-07-26 08:17 | ED ---
Back Pain HPI - General Chief Complaint: Back Pain/Injury Stated Complaint: Back Pain Time Seen by Provider: 07/26/24 08:15 Source: patient, RN notes reviewed Limitations: no limitations - History of Present Illness Initial Comments: 34-year-old male presenting to the ER with a chief complaint of lumbar back pain. He states approximately 6 months ago he was moving washer and dryer as at his grandmother's home. He states this is when pain started. Has been consistent for the past 6 months. Describes the pain as sharp and achy in nature. Pain does improve with movement. Denies any radiation of pain or paresthesias. No weakness. Patient has been taking [id number] Tylenol with minor relief. Denies any rashes. Denies any saddle paresthesias, bowel or bladder incontinence, fevers, IV drug use. Patient also reports for the past 10 years he has been having difficulty urinating ever since he started taking injections of risperidone. States his last injection was approximately 2 days ago. States he feels like he has to "force" urine out. He denies any dysuria, hematuria or abdominal pain. Denies history of prostate issues or concern for STDs. - Related Data Home Medications Medication Instructions Recorded Confirmed risperiDONE microspheres 50 mg IM Q14D 02/09/23 07/10/23 [RisperDAL Consta] Previous Rx's Medication Instructions Recorded Cyclobenzaprine [Flexeril] 10 mg PO TID PRN #15 tab 07/26/24 Allergies Allergy/AdvReac Type Severity Reaction Status Date / Time No Known Allergies Allergy Verified 07/26/24 07:49 Review of Systems ROS Statement: Those systems with pertinent positive or pertinent negative responses have been documented in the HPI. ROS Other: All systems not noted in ROS Statement are negative. Past Medical History Past Medical History: Asthma, Eye Disorder Additional Past Medical History / Comment(s): pt states he is nearsighted and has asthma History of Any Multi-Drug Resistant Organisms: None Reported Past Surgical History: No Surgical Hx Reported Past Anesthesia/Blood Transfusion Reactions: No Reported Reaction Additional Past Anesthesia/Blood Transfusion Reaction / Comment(s): has not had any anesthesia or tranfusions Past Psychological History: Anxiety, Depression, Schizophrenia Smoking Status: Current every day smoker Past Alcohol Use History: Rare Past Drug Use History: Marijuana - Past Family History Father Family Medical History: No Reported History Additional Family Medical History / Comment(s): Father is alive with no major medical problems. Mother Family Medical History: No Reported History Additional Family Medical History / Comment(s): Mother in 2007. Patient does not know her age at the time and could be related to alcohol problems. Brother(s) Additional Family Medical History / Comment(s): Patient has 5 brothers and one from problems with alcohol. The other 4 brothers have no major medical problems. Patient has one sister that is healthy. Patient has 3 daughters that are healthy. General Exam Limitations: no limitations General appearance: alert, in no apparent distress Respiratory exam: Present: normal lung sounds bilaterally. Absent: respiratory distress, wheezes, rales, rhonchi, stridor Cardiovascular Exam: Present: regular rate, normal rhythm, normal heart sounds. Absent: systolic murmur, diastolic murmur, rubs, gallop, clicks GI/Abdominal exam: Present: soft, normal bowel sounds. Absent: distended, tenderness, guarding, rebound, rigid Extremities exam: Present: normal inspection, full ROM, normal capillary refill. Absent: tenderness, pedal edema, joint swelling, calf tenderness Back exam: Present: normal inspection, full ROM, paraspinal tenderness (bilateral lumbar), other (negative straight leg raise bilaterally.) Neurological exam: Present: alert, oriented X3, CN II-XII intact Skin exam: Present: warm, dry, intact, normal color. Absent: rash Course Vital Signs 07/26/24 07/26/24 07:45 09:11 Temperature 97.7 F 98.0 F Pulse Rate 72 76 Respiratory 18 18 Rate Blood Pressure 128/85 122/80 O2 Sat by Pulse 98 98 Oximetry - Reevaluation(s) Reevaluation #1: 07/26/24 08:56 Postvoid residual 29ml Medical Decision Making - Medical Decision Making Was pt. sent in by a medical professional or institution (, PA, WINDOW SHADE ESTIMATOR, urgent care, hospital, or [place] [facility] facility...) When possible be specific @ -No Did you speak to anyone other than the patient for history (EMS, parent, family, police, friend...)? What history was obtained from this source @ -No Did you review nursing and triage notes (agree or disagree)? Why? @ -I reviewed and agree with nursing and triage notes Were old charts reviewed (outside hosp., previous admission, EMS record, old EKG, old radiological studies, urgent care reports/EKG's, [place] health care facility records)? Report findings @ -No old charts were reviewed Differential Diagnosis (chest pain, altered mental status, abdominal pain women, abdominal pain men, vaginal bleeding, weakness, fever, dyspnea, syncope, h eadache, dizziness, GI bleed, back pain, seizure, CVA, palpatations, mental health, musculoskeletal)? @ -Differential Back Pain:Strain, zoster, cauda equina syndrome, epidural abscess, vertebral osteomyelitis, discitis, fracture, subluxation, disc herniation, DJD, spinal stenosis, dissection, AAA, pancreatitis, peptic ulcer disease, pyelonephritis, kidney stone, this is not meant to be an all-inclusive list. EKG interpreted by me (3pts min.). @ -None done X-rays interpreted by me (1pt min.). @ -Lumbar spine x-rays interpreted by me negative for acute fractures or dislocations CT interpreted by me (1pt min.). @ -None done U/S interpreted by me (1pt. min.). @ -None done What testing was considered but not performed or refused? (CT, X-rays, U/S, labs)? Why? @ -None What meds were considered but not given or refused? Why? @ -None Did you discuss the management of the patient with other professionals (professionals i.e. , PA, WINDOW SHADE ESTIMATOR, lab, RT, psych nurse, outreach and education social worker, director of partner marketing, teacher, landing signal officer, case management associate)? Give summary @ -No Was smoking cessation discussed for >3mins.? @ -No Was critical care preformed (if so, how long)? @ -No Were there social determinants of health that impacted care today? How? (Homelessness, low income, unemployed, alcoholism, drug addiction, transportation, low edu. Level, literacy, decrease access to med. care, fci, rehab)? @ -No Was there de-escalation of care discussed even if they declined (Discuss DNR or withdrawal of care, Hospice)? DNR status @ -No What co-morbidities impacted this encounter? (DM, HTN, Smoking, COPD, CAD, Canc er, CVA, ARF, Chemo, Hep., AIDS, mental health diagnosis, sleep apnea, morbid obesity)? @ -None Was patient admitted / discharged? Hospital course, mention meds given and route, prescriptions, significant lab abnormalities, going to OR and other pertinent info. @ -Discharge. 34-year-old male presenting to the ER with a chief complaint of back pain x 6 months. History and physical exam completed. Vitals within normal limits. Patient appears well-developed and well-nourished. No signs of acute distress. No leg back pain symptoms indicative of cauda equina syndrome. Bilateral paraspinal muscle tenderness. Negative straight leg raise bilaterally. X-rays and symptomatic control in the ER will be completed, patient is agreeable. Lumbar spine x-rays negative for acute process. Patient received IM Norflex and ibuprofen for symptom control in the ER, with improvement. Patient also complaining of "pressure with urination" x 10 years. Bladder scan and urinalysis will be completed. Postvoid bladder scan 29 mL. Urine analysis with 16 WBCs and trace leukocyte esterases. Urine will be sent for culture. Antibiotics pending culture. No concern of STDs. Upon reevaluation, patient resting comfortably in exam room reporting improvement of pain. Flexeril prescribed. I advised OTC ibuprofen and Tylenol for pain control outpatient. Strict return parameters discussed. Patient discharged in stable condition with follow-up to PCP. Patient verbally expressed understanding and agreement with care plan. Case discussed with ED attending, . Undiagnosed new problem with uncertain prognosis? @ -No Drug Therapy requiring intensive monitoring for toxicity (Heparin, Nitro, Insulin, Cardizem)? @ -No Were any procedures done? @ -No Diagnosis/symptom? @ -Back pain Acute, or Chronic, or Acute on Chronic? @ -Acute Uncomplicated (without systemic symptoms) or Complicated (systemic symptoms)? @ -Reviewed Side effects of treatment? @ -No Exacerbation, Progression, or Severe Exacerbation? @ -No Poses a threat to life or bodily function? How? (Chest pain, [place], [place], pneumonia, PE, COPD, DKA, ARF, appy, cholecystitis, CVA, Diverticulitis, Homicidal, Suicidal, threat to staff... and all critical care pts) @ -No - Lab Data Lab Results 07/26/24 Range/Units 08:31 Urine Color Yellow Urine Appearance Clear (Clear) Urine pH 5.5 (5.0-8.0) Ur Specific [place] 1.019 (1.001-1.035) Urine Protein Negative (Negative) Urine Glucose (UA) Negative (Negative) Urine Ketones Negative (Negative) Urine Blood Negative (Negative) Urine Nitrite Negative (Negative) Urine Bilirubin Negative (Negative) Urine Urobilinogen <2.0 (<2.0) mg/dL Ur Leukocyte Esterase Trace H (Negative) Urine RBC 2 (0-5) /hpf Urine WBC 16 H (0-5) /hpf Urine Mucus Few H (None) /hpf - Radiology Data Radiology results: report reviewed, image reviewed Disposition Clinical Impression: Back pain Disposition: HOME SELF-CARE Condition: Stable Instructions (If sedation given, give patient instructions): Acute Low Back Pain (ED) Additional Instructions: I recommend OTC ibuprofen and tylenol for pain control outpatient. Take Flexeril with caution as this medication may make you feel drowsy or sleepy. Follow-up with PCP. Return to the ER for any new or worsening symptoms. Prescriptions: Cyclobenzaprine [Flexeril] 10 mg PO TID PRN #15 tab PRN Reason: Muscle Spasm Is patient prescribed a controlled substance at d/c from ED?: No Referrals: None,Stated [Primary Care Provider] - 1-2 days Forms: Area PCPs Time of Disposition: 09:07
[2024-07-26] MEDS: ORPHENADRINE 30 MG/ML 2 ML VIAL IM STA (08:25)
[2024-07-26] MEDS: IBUPROFEN 600 MG TAB PO STA (08:25)
--- NOTE | 2024-07-26 08:54 | XR ---
EXAMINATION TYPE: XR lumbar spine 2 or 3V DATE OF EXAM: 07/26/2024 8:38 AM CLINICAL INDICATION: Male, 34 years old with history of back pain x 6 months; [facility] COMPARISON: None TECHNIQUE: XR lumbar spine 2 or 3V - Frontal, lateral and coned in L5-S1 lateral views of the spine. FINDINGS: No evidence of any acute osseous pathology. No evidence of loss of vertebral body height i s seen. There is normal alignment of the lumbar vertebral bodies. Minimal osteophyte formation and fa cet joint arthropathy. IMPRESSION: 1. No acute fracture. 2. Minimal disc degeneration. [facility], , 07/26/2024 8:52 AM
[2024-07-26 08:56] LABS: Appearance,Urine Clear (Clear); Bilirubin,Urine Negative (Negative); Blood,Urine Negative (Negative); Color,Urine Yellow; Glucose,Urine (UA) Negative (Negative); Ketones,Urine Negative (Negative); Leukocyte Esterase,Urine Trace (Negative); Mucus,Urine Few /hpf; Nitrite,Urine Negative (Negative); PH, Urine 5.5 (5.0-8.0); Protein,Urine Negative (Negative); RBC,Urine 2 /hpf (0-5); Specific Gravity,Urine 1.019 (1.001-1.035); Urobilinogen,Urine <2.0 mg/dL (<2.0); WBC,Urine 16 /hpf (0-5)
[2024-07-26 09:13] VITALS: BP 122/80; PULSE 76; TEMP 98
== END 2024-07-26 09:12 | disposition home or self-care (01) ==
LOC: EC 07:41
CPT/HCPCS: 51798; 72100; 81001; 87086; 96372; 99283